=== PATIENT | male | born 1965 | race Caucasian/White ===

== ENCOUNTER 2024-01-20 15:54 | Outpatient (AMB) | payer OTHER, SELFPAY ==
[2024-01-20 16:00] VITALS: BP 120/72; PULSE 70; O2SAT 96; BMI 41.6
--- NOTE | 2024-01-20 16:00 | A.OFFPC_ITS ---
Vital Signs 01/20/24 16:00 Height 5 ft 10 in Weight 290 lb BMI 41.6 BP 120/72 Blood Pressure Location Lt brachial Position Sitting Pulse 70 Pulse Source Pulse Oximeter Pulse Oximetry (%) 96 Oxygen Delivery Method Room Air Intake Visit Reasons: [facility] care[facility] discharge Intake Note: Patient is here as a new patient, [facility] discharge, and patient states he is still in pain, though. Allergies No Known Allergies Allergy (Verified 01/20/24 16:05) Tobacco use date assessed: 01/20/24 Dental Screening Dental Screen Date: 01/20/24 Did you have a dental visit in the last 12 months?: Yes Did you have a dental problem in the last 6 months where you did not have access to dental care?: No Was dental information given to patient?: Patient has dentist HPI [facility] HPI Details New patient Prior PCP:? Dr King Last office visit/CPE: > 1 yr Acute issue(s): Shingles at?right?forehead PMHx: Shingles.Kidney stones, SurgHx: I&D L leg, FHx: GM: HLD SocHx: Nonsmoker. EtOH None. No drugs PFSH Medical History (Updated 01/20/24 @ 17:02 by Den Simmons) Kidney stones Cellulitis of left leg Shingles Family History (Updated 01/20/24 @ 16:12 by Emma Mcmahan [facility]) Maternal Grandmother High cholesterol Sister Substance abuse Social History (Updated 01/20/24 @ 16:15 by Emma Mcmahan WAREHOUSE RECEIVING SUPERVISOR) Household Members: Spouse Both parents involved: No Caregiver staying overnight: No Housing: House Are you a primary manager of care to a significant other at home: No Do you presently have visiting nurse or other home services: No Alcohol intake: never Patient Tobacco Use Status: Never used Tobacco e-Cigarette/Vaping Use: Never Used Use of substances other than those prescribed or required for medical reasons: No Have you been hit, kicked, punched, or otherwise hurt by someone within the past year? If so, by whom?: No Do you feel safe in your current relationship?: Yes Is there a partner from a previous relationship who is making you feel unsafe now?: No Are you made to feel afraid or neglected: No Special janis needs: No Advance Directives: No Healthcare Proxy: No service: Yes Current occupational status: employed Current occupation: Builder, self employed Cognitive needs: No Hearing needs: No Vision needs: No Questionnaire PHQ-9 Over the last 2 weeks, how often have you been bothered by any of the following problems? 1. Little interest or pleasure in doing things: not at all 2. Feeling down, depressed, or hopeless: not at all 3. Trouble falling or staying asleep, or sleeping too much: not at all 4. Feeling tired or having little energy: not at all 5. Poor appetite or overeating: not at all 6. Feeling bad about yourself - or that you are a failure or have let yourself or your family down: not at all 7. Trouble concentrating on things, such as reading the newspaper or watching television: not at all 8. Moving or speaking so slowly that other people could have noticed. Or the opposite - being so fidgety or restless that you have been moving around a lot more than usual: not at all 9. Thoughts that you would be better off or of hurting yourself in some w ay: not at all Total score: 0 Depression Screening Interpretation: Negative Depression Screening Done: Yes Source: Developed by Drs. Roger Dc, Anne Fink, Juan Ramires and colleagues, with an educational iliana from [employer]. Thrive Questionnaire Date Thrive assessed: 01/20/24 I am a: Patient What is your living situation today?: I have a steady place to live Within the past 12 months, did the food you bought not last and you didn't have the money to get more?: Never true Within the past 12 months, did you worry whether your food would run out before you got money to buy more?: Never true Do you have trouble paying for medicines?: Yes Do you have trouble getting transportation to medical appointments?: No Do you have trouble paying your heating and electricity bill?: No Do you have trouble taking care of your child, family member or friend?: No Do you have trouble with day-to-day activities such as bathing, preparing meals, shopping, managing finances, etc.?: No Are you currently unemployed and looking for a job?: No Are you interested in more education?: No THRIVE Score: 0 AUDIT C Alcohol Use Questionnaire (AUDIT-C) 1. How often do you have a drink containing alcohol?: Never 3. How often do you have six or more drinks on one occasion?: Never Total Score: 0 JOSHUA-7 AMB Questionnaire JOSHUA-7 Date JOSHUA - 7 assessed: 01/20/24 Feeling nervous, anxious, or on edge: 0 = Not at all Not being able to stop or control worryin = Not at all Worrying too much about different things: 0 = Not at all Trouble relaxin = Not at all Being so restless that it is hard to sit still: 0 = Not at all Becoming easily annoyed or irritable: 0 = Not at all Feeling afraid as if something awful might happen: 0 = Not at all Total JOSHUA-7 score (0-4 normal; 5-9 mild; 10-14 moderate; 15-21 severe): 0 Source: Developed by Drs. Roger Dc, Anne Fink, Juan Ramires and colleagues, with an educational iliana from [employer]. Review of Systems Const Denies chills, Denies fatigue, Denies fever(s), Denies headache(s) and Denies weakness ENT Denies dizziness and Denies headache(s) Card Denies chest pain, Denies lightheadedness, Denies dyspnea and Denies other (Palpitations) Resp Denies cough, Denies dyspnea, Denies wheezing and Denies other ( shortness of breath) Musc Denies numbness and Denies tingling Neuro Denies dizziness, Denies headache(s), Denies numbness, Denies tingling, Denies paresthesias and Denies weakness Psych Denies anxiety and Denies depression Endo Denies fatigue Aller/Immun Denies wheezing Physical exam (Primary Care) Vital Signs: Last Vital Signs Pulse 70 01/20/24 16:00 BP 120/72 01/20/24 16:00 Pulse Ox 96 01/20/24 16:00 Oxygen Delivery Method Room Air 01/20/24 16:00 BMI result Body Mass Index 41.6 Tobacco/Smoking Status: Tobacco use Status Tobacco use date assessed 01/20/24 01/20/24 16:12 Patient Tobacco Use Status Never used Tobacco 01/20/24 16:15 e-Cigarette/Vaping Use Never Used 01/20/24 16:12 PHQ-9: PHQ-9 Score PHQ-9: Total score 0 01/20/24 17:24 Depression Screening Interpretation: Negative Thrive Assessment: Date of Thrive Assessment Date Thrive assessed 01/20/24 01/20/24 16:19 Const General: no acute distress and well developed Nutritional Appearance: well nourished Orientation/consciousness: patient oriented x3 HENMT Other: Scabbed over rash at R forehead and scalp Dependent swelling/erythema of R lower eyelid/upper cheek Mild tenderness of the cheek Head: Yes normocephalic and Yes atraumatic Eyes General: appearance normal, both eyes and all related structures Pupils: Equal, round and reactive pupils present EOM: EOMs intact bilaterally Chest Chest palpation & inspection: no localized rib tenderness Resp Effort & Inspection: normal respiratory effort Auscultation: clear to auscultation bilaterally Cardio Rate: regular rate Rhythm: regular rhythm Heart sounds: S1 normal heart sound present, S2 normal heart sound present, no gallops, no murmurs and no rubs Skin Other: Rash at R forehead and scalp in dermatome distribution Neuro General: patient oriented x3 and gait normal Cranial nerves: Yes Equal, round and reactive pupils present Psych Affect: normal affect Immunizations Boostrix Tdap 2.5 Lf unit-8 mcg-5 Lf/0.5 mL intramuscular syringe Performing Provider: Ascencion Silva MD Performing Location: [facility] Administered by: Emma Mcmahan CMA on 01/20/24 17:24 Dose Route Admin Location Dispensed Lot Number Expiration Date NDC Oral And Maxillofacial Surgeon 0.5 mL IM Left Deltoid 0.5 mL [id number] 10/05/25 [id number] [place] VIS Given Date VIS Provided VIS Publication Date 01/20/24 Single Vaccine 21 Eligibility Eligibility Date Funding Source Not [facility] Eligible 01/20/24 Private Assessment and Plan Assessment & Plan (1) Shingles: Code(s): B02.9 - Zoster without complications Plan: Shingles?at?right?forehead?and?scalp?which?has?scabbed?ov er?it?and?he?is?finishing?10?day?course?of?valacyclovir. Had?taken?oxycodone?for?pain?but?he?said?this?made?him?sick. Will?give?him?a?script?for?gabapentin Had?seen?vending machine collector?and?no?ocular?involvement. Cheek?swelling?is?improving?and?only?mild?tenderness?consistent?with?swelling?ra ther?than?cellulitis.??Advised?him?to?let?me?know?if?swelling?is?worsening?or?th ere?is?any?pain?or?drainage Si gnificant?breaks?in?skin?at?forehead?and?patient?has?not?had?a?tetanus?shot?in?1 0?years.??Will?give?him?a?tetanus?shot?today (2) Immunization counseling: Code(s): Z71.85 - Encounter for immunization safety counseling Plan: As?above,?patient?is?due?for?tetanus?shot?and?has?significant?break s?in?his?skin?due?to?scabbed?over?shingles?infection Will?give?him?a?tetanus?shot?today. Also?advise?that?he?should?contact?his?pharmacy?to?start?Shingrix?vaccinations (3) Laboratory exam ordered as part of routine general medical examination: Code(s): Z00.00 - Encounter for general adult medical examination without abnormal findings Plan: Check?labs Orders: Orders Comprehensive [place]. Panel Fast 01/20/24 Z00.00 - Encounter for general adult medical examination without abnormal findings Microalbumin, Random (w Creat) 01/20/24 I10 - Essential (primary) hypertension TSH reflex Free T4 01/20/24 Z00.00 - Encounter for general adult medical examination without abnormal findings UA and rflx microscopic 01/20/24 Z00.00 - Encounter for general adult medical examination without abnormal findings Complete Blood Count Auto Diff 01/20/24 Z00.00 - Encounter for general adult medical examination without abnormal findings Lipid Panel 01/20/24 Z00.00 - Encounter for general adult medical examination without abnormal findings Prostate Specific Antigen Scr 01/20/24 Z12.5 - Encounter for screening for malignant neoplasm of prostate Vitamin B12 and Folate 01/20/24 E53.8 - Deficiency of other specified B group vitamins TDaP Immunization 01/20/24 Z23 - Encounter for immunization Medications: New gabapentin 300 mg PO BID 30 days 60 caps 2RF Coding Level of Care Code New Pt Level 3 (99075) Diagnoses Shingles B02.9 Immunization counseling Z71.85 Laboratory exam ordered as part of routine general medical examination Z00.00
== END 2024-01-20 17:00 ==
PROVIDERS: PCP Family Medicine; Visit Provider Family Medicine
DX: Z23 Encounter for immunization (principal)
CPT/HCPCS: 90471; 90715; 99203

== ENCOUNTER 2024-02-01 08:52 | Outpatient (AMB) | payer OTHER, SELFPAY ==
[2024-02-01 08:55] VITALS: BP 118/70; PULSE 72; O2SAT 96; BMI 42.2
--- NOTE | 2024-02-01 08:55 | MHC.PC.OV ---
Vital Signs 02/01/24 08:55 Height 5 ft 10 in Weight 294 lb BMI 42.2 BP 118/70 Blood Pressure Location Lt brachial Position Sitting Pulse 72 Pulse Source Pulse Oximeter Pulse Oximetry (%) 96 Oxygen Delivery Method Room Air Intake Visit Reasons: [facility] [place] Intake Note: Patient is here for follow up on shingles ED visit. He states he is still in pain, he gets attack of pains, they started after he visited his antiviral. Allergies No Known Allergies Allergy (Verified 02/01/24 08:59) Tobacco use date assessed: 02/01/24 Dental Screening Dental Screen Date: 02/01/24 HPI [facility] [place] HPI Details 58 y/o male presents to f/u [facility] [place] for [place]ingles. Was given 1000mg of veltrex in ED - CT of orbits completed and no postseptal involvement. Bookmaker'S Clerk recommended 1000mg of valrex 3 times daily, zirgan 5x per day, erythromycin 4 times daily. Pt notes he no longer has valcyclovir and has only been using gabapentin. Pt states it has been about 24 hours since last symptoms. He does not have an appt. with a neurologist. [facility] Medical History Kidney stones Cellulitis of left leg Shingles Family History Maternal Grandmother High cholesterol Sister Substance abuse Social History Household Members: Spouse Both parents involved: No Caregiver staying overnight: No Housing: House Are you a primary healthcare network consultant to a significant other at home: No Do you presently have visiting nurse or other home services: No Alcohol intake: never Patient Tobacco Use Status: Never used Tobacco e-Cigarette/Vaping Use: Never Used Special janis needs: No service: Yes Current occupational status: employed Current occupation: Builder, self employed Cognitive needs: No Hearing needs: No Vision needs: No Questionnaire Thrive Questionnaire Date Thrive assessed: 01/20/24 JOSHUA-7 AMB Questionnaire JOSHUA-7 Date JOSHUA - 7 assessed: 01/20/24 Source: Developed by Drs. Roger Dc, Anne B.W. Juan Fink and colleagues, with an educational iliana from [employer]. Review of Systems Const Denies chills, Denies fatigue, Denies fever(s), Denies headache(s) and Denies weakness ENT Denies dizziness and Denies headache(s) Card Denies dyspnea Resp Denies cough, Denies dyspnea, Denies wheezing and Denies other (shortness of breath) Musc Denies numbness and Denies tingling Neuro Denies dizziness, Denies headache(s), Denies numbness, Denies tingling and Denies weakness Psych Denies anxiety and Denies depression Endo Denies fatigue Aller/Immun Denies wheezing Physical exam (Primary Care) Vital Signs: Last Vital Signs Pulse 72 02/01/24 08:55 BP 118/70 02/01/24 08:55 Pulse Ox 96 02/01/24 08:55 Oxygen Delivery Method Room Air 02/01/24 08:55 BMI result Body Mass Index 42.2 Tobacco/Smoking Status: Tobacco use Status Tobacco use date assessed 02/01/24 02/01/24 09:03 Patient Tobacco Use Status Never used Tobacco 02/01/24 09:03 e-Cigarette/Vaping Use Never Used 02/01/24 09:03 Thrive Assessment: Date of Thrive Assessment Date Thrive assessed 01/20/24 02/01/24 09:03 Const General: well developed; No acute distress Nutritional Appearance: well nourished Orientation/consciousness: patient oriented x3 HENMT Head: Yes normocephalic and Yes atraumatic Eyes General: appearance normal, both eyes and all related structures Pupils: Equal, round and reactive pupils present EOM: EOMs intact bilaterally Resp Effort & Inspection: normal respiratory effort Neuro General: patient oriented x3 and gait normal Cranial nerves: Yes Equal, round and reactive pupils present Psych Affect: normal affect Assessment and Plan Assessment & Plan (1) Shingles: Code(s): B02.9 - Zoster without complications Plan: Shingles?at?right?forehead?and?scalp?and?ongoing?severe?pain?and?neuralgia?at?this?site.??Still?has?some?breaks?in?the?skin He?has?increased?his?gabapentin?and?I?have?changed?his?script?to?accommodate?this?for?now Will?also?continue?his valacyclovir?as?symptoms?worsened?again?when?he?discontinued it He?can?also?try?some?lidocaine?gel/ointment - avoid?eye?area Referred?to?neurology (2) Post herpetic neuralgia: Code(s): B02.29 - Other postherpetic nervous system involvement Plan: As?above,?referred?to?neurology Orders: Referrals Neurology Referral B02.29 - Other postherpetic nervous system involvement, B02.9 - Zoster without complications Medications: New lidocaine 5% 1 appl topical BID PRN 45 grams 0RF pain 10 days B02.29 - Other postherpetic nervous system involvement, B02.9 - Zoster without complications Changed From gabapentin 300 mg PO BID 30 days 60 caps 2RF B02.29 - Other postherpetic nervous system involvement, B02.9 - Zoster without complications To gabapentin 600 mg (2 x 300 mg) PO Q6-8H 30 days 240 caps 2RF B02.29 - Other postherpetic nervous system involvement, B02.9 - Zoster without complications From valacyclovir 1,000 mg PO TID To valacyclovir 1,000 mg PO TID 7 days 21 tabs 0RF Coding Level of Care Code Est Pt Level 3 (44700) Diagnoses Shingles B02.9 Post herpetic neuralgia B02.29
== END 2024-02-01 09:36 | disposition home or self-care (01) ==
PROVIDERS: PCP Family Medicine; Visit Provider Family Medicine
DX: B02.9 Zoster without complications (principal); B02.29 Other postherpetic nervous system involvement
CPT/HCPCS: 99213

== ENCOUNTER 2024-02-15 13:22 | Outpatient (AMB) | payer OTHER, SELFPAY ==
--- NOTE | 2024-02-15 13:26 | A.OFFPC_ITS ---
Vital Signs 02/15/24 13:30 Height 5 ft 10 in Weight 294 lb BMI 42.2 BP 130/80 Blood Pressure Location Lt brachial Position Sitting Respiration 13 Pulse 88 Pulse Source Pulse Oximeter Pulse Oximetry (%) 98 Oxygen Delivery Method Room Air Intake Visit Reasons: 2 week follow up Intake Note: Patient is having a two week follow up regarding shingles. Patient reports he has been trying to fix the Gabapentin RX confusion. Patient reports due to the amount of pain he was in, prior to seeing Dr. Silva 2 weeks ago, he called the web production designer provider and was told to increase his Gabapentin to 600mg Q4-6H. Patient informed provider of this and provider noted in his last OVN he would increase this medication. This confusion looks like a clerical error with transition of medication from EMR system to pharmacy. Patient requests a new RX to reflect Gabapentin 300mg capsules sig: Take 2 capsules Q4-6H QTY: 360. Patient reports he was having trouble with obtaining an appointment through [facility] neurology. He went through his insurance [employer] and found a new neurologist in [place], [place]. Patient requests an urgent referral. Online Journalist Required: No Accompanied by: Spouse Allergies No Known Allergies Allergy (Verified 02/15/24 13:35) Tobacco use date assessed: 02/01/24 Dental Screening Dental Screen Date: 02/01/24 HPI 2 week follow up HPI Details 58 y/o male presents to f/u shingles/pos t herpetic neuralgia. He reports ongoing pain but does note severity of pain have improved, though he reports pain in the 7-8 scale. He notes he does not think lidocaine has been working well and makes it hard to sleep. Gabapentin has been helping. [facility] Medical History Kidney stones Cellulitis of left leg Shingles Family History Maternal Grandmother High cholesterol Sister Substance abuse Social History Household Members: Spouse Both parents involved: No Caregiver staying overnight: No Housing: House Are you a primary career placement specialist to a significant other at home: No Do you presently have visiting nurse or other home services: No Alcohol intake: never Patient Tobacco Use Status: Never used Tobacco e-Cigarette/Vaping Use: Never Used Special janis needs: No service: Yes Current occupational status: employed Current occupation: Builder, self employed Cognitive needs: No Hearing needs: No Vision needs: No Questionnaire Thrive Questionnaire Date Thrive assessed: 01/20/24 JOSHUA-7 AMB Questionnaire JOSHUA-7 Date JOSHUA - 7 assessed: 01/20/24 Source: Developed by Drs. Roger Dc, Anne Fink, Juan Ramires and colleagues, with an educational iliana from [employer]. Review of Systems Const Denies chills, Denies fatigue, Denies fever(s), Denies headache(s) and Denies we akness ENT Denies dizziness and Denies headache(s) Card Denies dyspnea Resp Denies cough, Denies dyspnea, Denies wheezing and Denies other (shortness of breath) Musc Denies numbness and Denies tingling Neuro Denies dizziness, Denies headache(s), Denies numbness, Denies tingling and Denies weakness Psych Denies anxiety and Denies depression Endo Denies fatigue Aller/Immun Denies wheezing Physical exam (Primary Care) Vital Signs: Last Vital Signs Pulse 88 02/15/24 13:30 Resp 13 02/15/24 13:30 BP 130/80 02/15/24 13:30 Pulse Ox 98 02/15/24 13:30 Oxygen Delivery Method Room Air 02/15/24 13:30 BMI result Body Mass Index 42.2 Tobacco/Smoking Status: Tobacco use Status Tobacco use date assessed 02/01/24 02/15/24 13:27 Patient Tobacco Use Status Never used Tobacco 02/15/24 13:27 e-Cigarette/Vaping Use Never Used 02/15/24 13:27 Thrive Assessment: Date of Thrive Assessment Date Thrive assessed 01/20/24 02/15/24 13:27 Const General: well developed; No acute distress Nutritional Appearance: well nourished Orientation/consciousness: patient oriented x3 HENMT Head: Yes normocephalic and Yes atraumatic Eyes General: appearance normal, both eyes and all related structures Pupils: Equal, round and reactive pupils present EOM: EOMs intact bilaterally Resp Effort & Inspection: normal respiratory effort Neuro General: patient oriented x3 and gait normal Cranial nerves: Yes Equal, round and reactive pupils present Psych Affect: normal affect Assessment and Plan Assessment & Plan (1) Post herpetic neuralgia: Code(s): B02.29 - Other postherpetic nervous system involvement Plan: Patient?is?still?having?attacks?of?neuralgic?pain?up?to?pain?scale?of?8/10?thoug h?he?says?it?use?to?be?much?higher?(11)?and?more?frequent. Gabapentin?helps?though?he?has?to?take?a?rather?high?dose Lidocaine?isn't?helping?much.??He?is?done?with?valacyclovir. Continue?gabapentin?and?trial?amitriptyline. Will?also?give?him?a?small?amount?of?Percocet?that?he?can?use?f or?severe?pain.??Use?sparingly.??Risks/benefits?were?discussed?with?patient?incl uding?dependency/addiction. Referred?him?to?lay?he?clinic?Neurology?at?patient?request?because?they?could?gi ve?him?a?so marifer?appointment?than?local?neurology.??Patient?already?has?an?appointment. (2) Shingles: Code(s): B02.9 - Zoster without complications Plan: As?above Had?advised?he?get?Shingrix?vaccine?when?symptoms?improve. Remind?him?again?at?next?visit Orders: Referrals Neurology Referral B02.29 - Other postherpetic nervous system involvement, B02.9 - Zoster without complications Medications: New oxycodone-acetaminophen 5-325 mg (Percocet) [employer] Verified. Partial Fill upon patient request. 1 tab PO DAILY PRN 12 tabs 0RF breakthrough pain 30 days amitriptyline 100 mg (2 x 50 mg) PO DAILY 60 tabs 2RF 30 days Changed From gabapentin 600 mg (2 x 300 mg) PO Q6-8H 30 days 240 caps 2RF B02.29 - Other postherpetic nervous system involvement, B02.9 - Zoster without complications To gabapentin 600 mg (2 x 300 mg) PO Q4-6H PRN 360 caps 2RF pain 30 days B02.29 - Other postherpetic nervous system involvement, B02.9 - Zoster without complications Coding Level of Care Code Est Pt Level 3 (16891) Diagnoses Post herpetic neuralgia B02.29 Shingles B02.9
[2024-02-15 13:30] VITALS: BP 130/80; PULSE 88; RESP 13; O2SAT 98; BMI 42.2
== END 2024-02-15 14:38 | disposition home or self-care (01) ==
PROVIDERS: PCP Family Medicine; Visit Provider Family Medicine
DX: B02.29 Other postherpetic nervous system involvement (principal); B02.9 Zoster without complications
CPT/HCPCS: 99213

== ENCOUNTER 2024-03-05 15:36 | Outpatient (AMB) | payer OTHER, SELFPAY ==
--- NOTE | 2024-03-05 09:42 | A.OFFPC_ITS ---
Vital Signs 03/05/24 15:38 Height 5 ft 10 in Weight 293 lb 6 oz BMI 42.1 BP 123/60 Blood Pressure Location Rt brachial Position Sitting Pulse 83 Pulse Source Pulse Oximeter Pulse Oximetry (%) 95 Oxygen Delivery Method Room Air Intake Visit Reasons: f/u shingles/neuralgia Intake Note: Patient is here to follow up on shingles, neuralgia. Patient states he saw neurologist Jamar at [facility] in [place]. Allergies No Known Allergies Allergy (Verified 03/05/24 15:43) Tobacco use date assessed: 03/05/24 Dental Screening Dental Screen Date: 02/01/24 HPI f/u shingles/neuralgia HPI Details 58 y/o male presents to f/u post herpeti c neuralgia. Trialing amitriptyline and had given him a small amount of Percocet to use spari ngly. Had made a new referral to [facility]. Had seen neurology - he notes he had been unable to tolerate amitriptyline so neurologist had switched this to noritriptyline. Pt reports neuralgia has improved but still reports attacks. [facility] Medical History Kidney stones Cellulitis of left leg Shingles Family History Maternal Grandmother High cholesterol Sister Substance abuse Social History Household Members: Spouse Both parents involved: No Caregiver staying overnight: No Housing: House Are you a primary administrator health care facility to a significant other at home: No Do you presently have visiting nurse or other home services: No Alcohol intake: never Patient Tobacco Use Status: Never used Tobacco e-Cigarette/Vaping Use: Never Used Special janis needs: No service: Yes Current occupational status: employed Current occupation: Builder, self employed Cognitive needs: No Hearing needs: No Vision needs: No Questionnaire Thrive Questionnaire Date Thrive assessed: 01/20/24 JOSHUA-7 AMB Questionnaire JOSHUA-7 Date JOSHUA - 7 assessed: 01/20/24 Source: Developed by Drs. Roger Dc, Anne Fink, Juan Ramires and colleagues, with an educational iliana from [employer]. Review of Systems Const Denies chills, Denies fatigue, Denies fever(s), Denies headache(s) and Denies weakness ENT Denies dizziness and Denies headache(s) Card Denies dyspnea Resp Denies cough, Denies dyspnea, Denies wheezing and Denies other (shortness of breath) Musc Denies numbness and Denies tingling Neuro Denies dizziness, Denies headache(s), Denies numbness, Denies tingling and Denies weakness Psych Denies anxiety and Denies depression Endo Denies fatigue Aller/Immun Denies wheezing Physical exam (Primary Care) Vital Signs: Last Vital Signs Pulse 83 03/05/24 15:38 BP 123/60 03/05/24 15:38 Pulse Ox 95 03/05/24 15:38 Oxygen Delivery Method Room Air 03/05/24 15:38 BMI result Body Mass Index 42.1 Tobacco/Smoking Status: Tobacco use Status Tobacco use date assessed 03/05/24 03/05/24 15:50 Patient Tobacco Use Status Never used Tobacco 03/05/24 09:42 e-Cigarette/Vaping Use Never Used 03/05/24 09:42 Thrive Assessment: Date of Thrive Assessment Date Thrive assessed 01/20/24 03/05/24 09:42 Const General: well developed; No acute distress Nutritional Appearance: well nourished Orientation/consciousness: [facility] Head: Yes normocephalic and Yes atraumatic Eyes General: appearance normal, both eyes and all related structures Pupils: Equal, round and reactive pupils present EOM: EOMs intact bilaterally Resp Effort & Inspection: normal respiratory effort Auscultation: clear to auscultation bilaterally Cardio Rate: regular rate Rhythm: regular rhythm Heart sounds: S1 normal heart sound present, S2 normal heart sound present, no gallops, no murmurs and no rubs Neuro General: patient oriented x3 and gait normal Cranial nerves: Yes Equal, round and reactive pupils present Psych Affect: normal affect Assessment and Plan Assessment & Plan (1) Post herpetic neuralgia: Code(s): B02.29 - Other postherpetic nervous system involvement Plan: Pain?has?been?improving. He?saw?his?neurologist?who?changed?amitriptyline?to?nortriptyline?due?to?severe? sleepiness?with?amitriptyline. He?thinks?this?is?helping?somewhat?but?not?sure?yet?- he?has?only?been?taki ng?it?for?a?couple?of?days. Gabapentin?has?been?helping?and?this?was?in?frequency?of?doses?but?his?overall?d osing?for?24?hours?remains?the?same Lidocaine?helps?so?I?have?refilled?this. He?has?Percocet ?available?for?any?severe?pain.??Recommended?he?use?this?sparingly?and?when?it?i s?done?he?should?need?any He?has?an?appointment?to?follow-up?with?his?neurologist.??more. Also?check?with?patient?abou t?whether?or?not?he?has?gotten?a?Shingrix?vaccine?yet.??He?said?his?neurologist? wants?to?hold?off?until?he?has?improved?further.??He?can?double?check?with?him?a t?his?follow-up?appointment. (2) Immunization counseling: Code(s): Z71.85 - Encounter for immunization safety counseling Plan: As?above,?follow-up?with?neurologist?regarding?Shingrix?vaccine. Orders: Orders Hemoglobin A1c Today R73.01 - Impaired fasting glucose Medications: Refilled lidocaine 5% 1 appl topical BID 10 days PRN 45 grams 0RF pain B02.29 - Other postherpetic nervous system involvement, B02.9 - Zoster without complications Discontinued amitriptyline Discontinued Reason: Doctor's Order 100 mg (2 x 50 mg) PO DAILY 30 days 60 tabs 2RF Coding Level of Care Code Est Pt Level 3 (56870) Diagnoses Post herpetic neuralgia B02.29 Immunization counseling Z71.85
[2024-03-05 15:38] VITALS: BP 123/60; PULSE 83; O2SAT 95; BMI 42.1
== END 2024-03-09 13:28 | disposition home or self-care (01) ==
PROVIDERS: PCP Family Medicine; Visit Provider Family Medicine
DX: B02.29 Other postherpetic nervous system involvement (principal); Z71.85 Encounter for immunization safety counseling
CPT/HCPCS: 99213

== ENCOUNTER 2024-12-05 15:03 | Outpatient (REF) | payer OTHER, SELFPAY ==
[2024-12-05 18:21] LABS: MANUAL DIFF FLAG NO
[2024-12-05 18:36] LABS: Basophils Percent Auto 0.3 % (0-2); Eosinophils Absolute Auto 0.1 X10*3/uL (0.0-0.4); Eosinophils Percent Auto 1.8 % (0-4); Hematocrit 45.6 % (42.0-52.0); Hemoglobin 15.9 g/dl (14.0-18.0); Imm Gran Abs Auto 0.01 X10*3/uL (0.00-0.03); Imm Gran Pct Auto 0.2 % (0.0-0.4); Lymphocytes Absolute Auto 1.7 X10*3/uL (1.2-4.9); Lymphocytes Percent Auto 26.6 % (20-40); Mean Corpuscular HGB Conc 34.9 g/dl (31.0-36.0); Mean Corpuscular Hemoglobin 30.6 pg (27.0-33.0); Mean Corpuscular Volume 87.7 fL (80.0-98.0); Mean Platelet Volume 10.6 fL (9.4-12.4); Monocytes Absolute Auto 0.5 X10*3/uL (0.1-1.2); Monocytes Percent Auto 7.8 % (2-11); Neutrophils Percent Auto 63.3 % (45-73); Platelet Count 172 X10*3/uL (160-400); Red Cell Distribution Width 12.5 % (11.0-16.0); White Blood Count 6.3 X10*3/uL (4.8-10.8)
[2024-12-05 18:43] LABS: Estimated Average Glucose 117 mg/dL; Hemoglobin A1C 163.4576 umol/L; Hemoglobin A1c % 5.7 % (<6.0); Total Hemoglobin (HGBA1C) 4166.6968 umol/L
[2024-12-05 18:58] LABS: Alanine Aminotransferase 30 U/L (0-40); Albumin Level 4.5 g/dL (3.5-5.0); Alkaline Phosphatase 48 U/L (39-117); Anion Gap 11 (12-20); Aspartate Amino Transferase 27 U/L (5-37); Bilirubin Total 1.1 mg/dL (0.0-1.0); Blood Urea Nitrogen 19 mg/dL (9-16); Calcium 9.1 mg/dL (8.4-10.2); Carbon Dioxide 27 mmol/L (22-29); Chloride 103 mmol/L (96-108); Cholesterol 168 mg/dL (<200); Estimated Glomerular Filt Rate > 60; Glucose Fasting 92 mg/dL (60-99); HDL Cholesterol 42 mg/dL (>40); LDL Cholesterol Calculated 108 mg/dL (<100); Potassium 4.1 mmol/L (3.3-5.1); Sodium 137 mmol/L (135-145); Total Protein 7.5 g/dL (6.5-8.0); Triglycerides 90 mg/dL (<150)
[2024-12-05 18:59] LABS: Microalbum/Creatinine Ratio Ur 6.5 ug/mg cr (<30)
[2024-12-05 19:02] LABS: Appearance Urine Clear; Color Urine Yellow; Glucose Urine UA Negative (Negative); Leukocyte Esterase Urine Trace (Negative); Nitrite Urine Negative (Negative); Specific Gravity - Urine 1.025 (1.005-1.025); UMIC TRIGGER UA YES; Urine Blood Negative (Negative); Urine Ketones 40 mg/dL (Negative); Urine Protein Negative (Neg-Trace)
[2024-12-05 19:14] LABS: TSH reflex Free T4 1.36 uIU/mL (0.32-4.0)
[2024-12-05 19:21] LABS: Folate 9.2 ng/mL (> or = 4.0); Prostate Specific Antigen Scr 4.03 ng/mL (<0.05-4.0); Vitamin B12 836 pg/mL (200-900)
[2024-12-05 19:30] LABS: Bacteria Urine None Seen (None Seen); Hyaline Casts Urine 0-2 /LPF (0-2); RBC Urine 0-2 /HPF (0-2); Squamous Epithelial Cell Urine 0-2 /HPF (0-2); WBC Urine 0-5 /HPF (0-5)
== END 2024-12-05 15:04 | disposition home or self-care (01) ==
LOC: HO.WFDLDS 15:03
PROVIDERS: Visit Provider Family Medicine
DX: Z00.00 Encounter for general adult medical examination without abnormal findings (principal); I10 Essential (primary) hypertension; E53.8 Deficiency of other specified B group vitamins; R73.01 Impaired fasting glucose; Z12.5 Encounter for screening for malignant neoplasm of prostate
CPT/HCPCS: 36415; 80053; 80061; 81001; 81003; 82043; 82570; 82607; 82746; 83036; 84153; 84443; 85025

== ENCOUNTER 2024-12-07 08:54 | Outpatient (AMB) | payer OTHER, SELFPAY ==
--- NOTE | 2024-12-07 08:42 | MHC.PC.OV ---
Intake Visit Reasons: discuss high blood sugar Allergies No Known Allergies Allergy (Verified 03/05/24 15:43) Tobacco use date assessed: 03/05/24 Dental Screening Dental Screen Date: 02/01/24 HPI discuss high blood sugar HPI Details 59 y/o male presents to f/u labs via telemedicine. Labs drawn 12/05/24. Reviewed labs with pt. A1c 5.7%. He notes hx of an A1c in the 9.0% range around last January - he had made changes and lost 40 lbs since then. Triglycerides 90. TC 168. LDL 108. HDL 42. PSA 4.03. He reports difficulty sleeping, He feels he needs to sleep on a recliner, and notes he wakes up frequently when he sleeps on his bed. HPI Comments History of Present Illness Details Documentation assistance for Ascencion Silva MD, was provided by Den Simmons, Monorail Hooker on 12/07/2024 at 9:07 AM EST. I, Dr. Silva, have read, observed, and verified documentation. [facility] Medical History Kidney stones Cellulitis of left leg Shingles Family History Maternal Grandmother High cholesterol Sister Substance abuse Social History Household Members: Spouse Both parents involved: No Caregiver staying overnight: No Housing: House Are you a primary youth care professional to a significant other at home: No Do you presently have visiting nurse or other home services: No Alcohol intake: never Patient Tobacco Use Status: Never used Tobacco e-Cigarette/Vaping Use: Never Used Special janis needs: No service: Yes Current occupational status: employed Current occupation: Builder, self employed Cognitive needs: No Hearing needs: No Vision needs: No Questionnaire Thrive Questionnaire Date Thrive assessed: 01/20/24 I am a: Patient What is your living situation today?: I have a steady place to live Within the past 12 months, did the food you bought not last and you didn't have the money to get more?: I choose not to answer this question Within the past 12 months, did you worry whether your food would run out before you got money to buy more?: I choose not to answer this question Do you have trouble paying for medicines?: I choose not to answer this question Do you have trouble getting transportation to medical appointments?: I choose not to answer this question Do you have trouble paying your heating and electricity bill?: I choose not to answer this question Do you have trouble taking care of your child, family member or friend?: I choose not to answer this question Do you have trouble with day-to-day activities such as bathing, preparing meals, shopping, managing finances, etc.?: I choose not to answer this question Are you currently unemployed and looking for a job?: I choose not to answer this question Are you interested in more education?: I choose not to answer this question THRIVE Score: 0 AUDIT C Alcohol Use Questionnaire (AUDIT-C) 1. How often do you have a drink containing alcohol?: Never 2. How many drinks containing alcohol do you have on a typical day when you are drinking?: 10 or more Total Score: 4 JOSHUA-7 AMB Questionnaire JOSHUA-7 Date JOSHUA - 7 assessed: 01/20/24 Source: Developed by Drs. Roger Dc, Anne Fink, Juan Ramires and colleagues, with an educational iliana from [employer]. Review of Systems Const Denies chills, Denies fatigue, Denies fever(s), Denies headache(s) and Denies weakness ENT Denies dizziness and Denies headache(s) Card Denies dyspnea Resp Denies cough, Denies dyspnea, Denies wheezing and Denies other (shortness of breath) Musc Denies numbness and Denies tingling Neuro Denies dizziness, Denies headache(s), Denies numbness, Denies tingling and Denies weakness Psych Denies anxiety and Denies depression Endo Denies fatigue Aller/Immun Denies wheezing Physical exam (Primary Care) Tobacco/Smoking Status: Tobacco use Status Tobacco use date assessed 03/05/24 12/07/24 08:48 Patient Tobacco Use Status Never used Tobacco 12/07/24 08:48 e-Cigarette/Vaping Use Never Used 12/07/24 08:48 Thrive Assessment: Date of Thrive Assessment Date Thrive assessed 01/20/24 12/07/24 08:48 Telehealth Telehealth Telehealth Platform: Telephone Location of provider rendering services: practice address Location of patient: address on file Patient Identification confirmed using: Name, : Yes Telehealth method: voice only Patient verbally consented to treatment: Yes Patient verbally consented to billing insurance company: Yes Patient informed of any privacy concerns related to visit: Yes Minutes spent on Phone/Video with Pt.: 24 Coding Level of Care Code Tele Est Pt Level 3 (72244) Diagnoses Diet-controlled diabetes mellitus E11.9 Elevated LDL cholesterol level E78.00 Elevated PSA R97.20 Difficulty sleeping G47.9 Assessment & Plan Assessment & Plan (1) Diet-controlled diabetes mellitus: Code(s): E11.9 - Type 2 diabetes mellitus without complications Category: Medical Plan: Will?send?a?script?for?testing?supplies Work?at?diet?low?in?sugars?and?starches Will?follow (2) Elevated LDL cholesterol level: Code(s): E78.00 - Pure hypercholesterolemia, unspecified Category: Medical Plan: Work?at?a?diet?low?in?saturated?fats?and?cholesterol Encouraged?exercise?and?weight?loss Patient?notes?he?has?been?working?on?weight?loss?lost?considerable?amount?already (3) Elevated PSA: Code(s): R97.20 - Elevated prostate specific antigen [PSA] Category: Medical Plan: Elevated?PSA Recheck?this Patient?already?has?an?appointment?with?a?urologist (4) Difficulty sleeping: Code(s): G47.9 - Sleep disorder, unspecified Category: Medical Plan: Patient?sleeps?in?a?recliner Has?had?gasping/apneic?events?lying?flat?in?a?bed Referred?to?Sleep?Medicine Orders: Orders Prostate Specific Antigen Scr Today R97.20 - Elevated prostate specific antigen [PSA], Z12.5 - Encounter for screening for malignant neoplasm of prostate Basic Metabolic Panel Today R97.20 - Elevated prostate specific antigen [PSA], Z00.00 - Encounter for general adult medical examination without abnormal findings Referrals Sleep Medicine Referral G47.30 - Sleep apnea, unspecified Medications: New blood sugar diagnostic (FreeStyle Lite Strips) DX: E11.9, test blood sugar 4 times a day, 90 days 100 ea 4RF R73.03 - Prediabetes blood-glucose meter (FreeStyle Lite Meter kit) DX: E11.9, test blood sugar once a day, duration 999 days 1 ea 0RF R73.03 - Prediabetes trazodone 50 mg PO BEDTIME 30 days PRN 30 tabs 0RF sleep Discontinued oxycodone-acetaminophen 5-325 mg (Percocet) MassPat Verified. Partial Fill upon patient request. Discontinued Reason: Doctor's Order 1 tab PO DAILY 30 days PRN 12 tabs 0RF breakthrough pain
== END 2024-12-07 17:05 | disposition home or self-care (01) ==
LOC: HO.HMCFM 08:54
PROVIDERS: PCP Family Medicine; Visit Provider Family Medicine
DX: E11.9 Type 2 diabetes mellitus without complications (principal); E78.00 Pure hypercholesterolemia, unspecified; R97.20 Elevated prostate specific antigen [PSA]; G47.9 Sleep disorder, unspecified

== ENCOUNTER 2025-01-02 13:54 | Outpatient (AMB) | payer OTHER, SELFPAY ==
--- NOTE | 2025-01-02 14:01 | A.OFFPC_ITS ---
Vital Signs 01/02/25 14:11 Height 5 ft 10 in Weight 233 lb 2 oz BMI 33.4 BP 116/60 Blood Pressure Location Lt brachial Position Sitting Respiration 14 Pulse 70 Pulse Source Pulse Oximeter Temp 98.8 F Temp Source Oral Pulse Oximetry (%) 93 Oxygen Delivery Method Room Air Intake Visit Reasons: FMLA Paperwork /Med review Intake Note: fmla paperwork and would like to talk about sleep medication he spoke with the environmental technology professor provider ( zina) who told him to double his dose. pt states he did not feel emotionally in control and couldn't get things done like he usually would. Faucets Assembler Required: No Allergies No Known Allergies Allergy (Verified 01/02/25 14:09) Medication List - Last Reconciled 01/02/25 by Ascencion Silva MD blood sugar diagnostic (OneTouch Ultra Test strips) As directed check the blood sugar once a day blood-glucose meter As directed check the blood sugar once a day One touch ULTRA lancets (FreeStyle Lancets) As directed lancets As directed check the blood sugar once a day tamsulosin 0.8 mg PO DAILY trazodone 50 mg PO BEDTIME PRN 30 days Tobacco use date assessed: 03/05/24 Dental Screening Dental Screen Date: 02/01/24 HPI FMLA Paperwork /Med review HPI Details 59 y/o male presents today for [facility] dakota velez. Notes ongoing difficulty sleeping. Had questions about increasing his trazodone dosage. He is on 50mg and has been helping. Higher dose had caused some adverse effects but he had taken this late at night. Labs drawn 12/05/24. Reviewed labs with pt. Triglycerides 90. TC 168. LDL 108. HDL 42 PSA elevated at 4.03. Reports ongoing, worsening anxiety. Hx of panic disorders with symptoms including chest pain. HPI Comments History of Present Illness Details Documentation assistance for Ascencion Silva MD, was provided by Den Simmons,? Wood Getter on 01/02/2025 at 2:34 PM EST. I, Dr. Silva, have read, observed, and verified documentation. ?? [facility] Medical History Kidney stones Cellulitis of left leg Shingles Family History Maternal Grandmother High cholesterol Sister Substance abuse Social History Household Members: Spouse Both parents involved: No Caregiver staying overnight: No Housing: House Are you a primary medicare sales representative to a significant other at home: No Do you presently have visiting nurse or other home services: No Alcohol intake: never Patient Tobacco Use Status: Never used Tobacco e-Cigarette/Vaping Use: Never Used Special janis needs: No service: Yes Current occupational status: employed Current occupation: Builder, self employed Cognitive needs: No Hearing needs: No Vision needs: No Questionnaire PHQ-9 Over the last 2 weeks, how often have you been bothered by any of the following problems? 1. Little interest or pleasure in doing things: several days 2. Feeling down, depressed, or hopeless: several days 3. Trouble falling or staying asleep, or sleeping too much: several days 4. Feeling tired or having little energy: several days 5. Poor appetite or overeating: not at all 6. Feeling bad about yourself - or that you are a failure or have let yourself or your family down: several days 7. Trouble concentrating on things, such as reading the newspaper or watching television: several days 8. Moving or speaking so slowly that other people could have noticed. Or the opposite - being so fidgety or restless that you have been moving around a lot more than usual: several days 9. Thoughts that you would be better off or of hurting yourself in some way: not at all Total score: 7 Source: Developed by Drs. Roger Dc, Anne Fink, Juan Ramires and colleagues, with an educational iliana from [email or web address]. Thrive Questionnaire Date Thrive assessed: 12/03/24 I am a: Patient What is your living situation today?: I have a steady place to live Within the past 12 months, did the food you bought not last and you didn't have the money to get more?: I choose not to answer this question Within the past 12 months, did you worry whether your food would run out before you got money to buy more?: I choose not to answer this question Do you have trouble paying for medicines?: I choose not to answer this question Do you have trouble getting transportation to medical appointments?: I choose not to answer this question Do you have trouble paying your heating and electricity bill?: I choose not to answer this question Do you have trouble taking care of your child, family member or friend?: I choose not to answer this question Do you have trouble with day-to-day activities such as bathing, preparing meals, shopping, managing finances, etc.?: I choose not to answer this question Are you currently unemployed and looking for a job?: I choose not to answer this question Are you interested in more education?: I choose not to answer this question Please select the resources that you would like help with: None Currently or been in a relationship where the following occur: No concerns reported THRIVE Score: 0 JOSHUA-7 AMB Questionnaire JOSHUA-7 Date JOSHUA - 7 assessed: 01/20/24 Source: Developed by Drs. Roger Dc, Anne Fink, Juan Ramires and colleagues, with an educational iliana from [email or web address]. Review of Systems Const Denies chills, Denies fatigue, Denies fever(s), Denies headache(s) and Denies weakness ENT Denies dizziness and Denies headache(s) Card Denies dyspnea Resp Denies cough, Denies dyspnea, Denies wheezing and Denies other (shortness of breath) Musc Denies numbness and Denies tingling Neuro Denies dizziness, Denies headache(s), Denies numbness, Denies tingling and Denies weakness Psych Reports anxiety Endo Denies fatigue Aller/Immun Denies wheezing Physical exam (Primary Care) Vital Signs: Last Vital Signs Temp 98.8 F 01/02/25 14:11 Pulse 70 01/02/25 14:11 Resp 14 01/02/25 14:11 BP 116/60 01/02/25 14:11 Pulse Ox 93 01/02/25 14:11 Oxygen Delivery Method Room Air 01/02/25 14:11 BMI result Body Mass Index 33.4 Tobacco/Smoking Status: Tobacco use Status Tobacco use date assessed 03/05/24 01/02/25 14:03 Patient Tobacco Use Status Never used Tobacco 01/02/25 14:03 e-Cigarette/Vaping Use Never Used 01/02/25 14:03 PHQ-9: PHQ-9 Score PHQ-9: Total score 7 01/02/25 14:03 Thrive Assessment: Date of Thrive Assessment Date Thrive assessed 12/03/24 01/02/25 14:03 Currently or been in a relationship where the following occur: No concerns reported Const General: well developed; No acute distress Nutritional Appearance: well nourished Orientation/consciousness: patient oriented x3 [facility] Head: Yes normocephalic and Yes atraumatic Eyes General: appearance normal, both eyes and all related structures Pupils: Equal, round and reactive pupils present EOM: EOMs intact bilaterally Resp Effort & Inspection: normal respiratory effort Neuro General: patient oriented x3 and gait normal Cranial nerves: Yes Equal, round and reactive pupils present Psych Affect: normal affect Coding Level of Care Code Est Pt Level 4 (76467) Diagnoses Difficulty sleeping G47.9 Anxiety F41.9 Chest discomfort R07.89 Elevated LDL cholesterol level E78.00 Elevated PSA R97.20 Assessment & Plan Assessment & Plan (1) Difficulty sleeping: Code(s): G47.9 - Sleep disorder, unspecified Category: Medical Plan: Patient?has?been?taking?trazodone?for?difficulty?sleeping?and?anxiety.??This?has ?been?helping. Higher?dose caused?some?adverse?effects?the?nex t?morning?however?he?had?taken?this?medication?rather?late?at?night Take?around?9?or?930?at?night and?can?use?50?or?100?mg?as?tolerated. (2) Anxiety: Code(s): F41.9 - Anxiety disorder, unspecified Category: Medical Plan: Ongoing?and?worsening?anx iety?and?patient?notes?he?has?a?history?some?prior?anxiety?and?panic?disorder. Symptoms?include?chest?pain Patient?was?recently?seen?at?the?emergency?department?and?ruled?out?for?ACS Will?have?him?start?citalopram?at?10?mg?daily?and?titrate?up?to?20?mg?daily. Risks/benefits?of?medication?including?serotonin?syndrome?more?discussed?with?krystle corbett. Patient?will?also?benefit?from?a?therapist - will?refer Patient?is?having?too?much?anxiety?to?drive?and?has?difficulty?outside - concern?for?early/mild?agoraphobia Requires?his??to?go?with?him?to?office?visits?at?present. Will?fill?out?FMLA?paperwork (3) Chest discomfort: Code(s): R07.89 - Other chest pain Category: Medical Plan: As?above,?patient?ruled?out?for?ACS?at?recent?ED?visit. He?does?have?a?strong?family?history?of?coronary?artery?disease?and?heart?attack s. He?has?already?been?referred?to?Cardiology?at?his?request. (4) Elevated LDL cholesterol level: Code(s): E78.00 - Pure hypercholesterolemia, unspecified Category: Medical Plan: Mildly?elevated?LDL?cholesterol.??Advised?diet?low?in?saturated?fats?and?cholest cristian,?weight?loss?and?exercise (5) Elevated PSA: Code(s): R97.20 - Elevated prostate specific antigen [PSA] Category: Medical Plan: Reminded?patient?that?he?has?a?repeat?PSA?level?ordered?and?he?will?get?this?don e?prior?to?next?visit. Medications: New citalopram 20 mg PO DAILY 90 days 90 tabs 3RF
[2025-01-02 14:11] VITALS: BP 116/60; PULSE 70; RESP 14; TEMP 37.1; O2SAT 93; BMI 33.4
== END 2025-01-02 15:20 | disposition home or self-care (01) ==
PROVIDERS: PCP Family Medicine; Visit Provider Family Medicine
DX: G47.9 Sleep disorder, unspecified (principal); F41.9 Anxiety disorder, unspecified; R07.89 Other chest pain; E78.00 Pure hypercholesterolemia, unspecified; R97.20 Elevated prostate specific antigen [PSA]

== ENCOUNTER → 2025-01-02 13:54 | Outpatient (BNVA) | payer OTHER, SELFPAY | PROVIDERS: PCP Family Medicine; Visit Provider Family Medicine ==

== ENCOUNTER 2025-02-11 15:48 | Outpatient (AMB) | payer OTHER, SELFPAY ==
--- NOTE | 2025-02-11 15:58 | MHC.PC.OV ---
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 He is on trazodone at night for sleep and anxiety. He notes he had not been able to tolerate citalopram - did not seem to work well for him. Has complaints of knee pain. Has been working on weight loss to try and alleviate the pain. Blood pressure today elevated at 150/70. Elevated PSA. He recalls he had an episode of being unable to urinate x1 day. [facility] Medical History Kidney stones Cellulitis of left leg Shingles Family History Maternal Grandmother High cholesterol Sister Substance abuse Social History Household Members: Spouse Both parents involved: No Caregiver staying overnight: No Housing: House Are you a primary manager primary care to a significant other at home: No Do you presently have visiting nurse or other home services: No Alcohol intake: never Patient Tobacco Use Status: Never used Tobacco e-Cigarette/Vaping Use: Never Used Special janis needs: No service: Yes Current occupational status: employed Current occupation: Builder, self employed Cognitive needs: No Hearing needs: No Vision needs: No Questionnaire PHQ-9 Over the last 2 weeks, how often have you been bothered by any of the following problems? 1. Little interest or pleasure in doing things: not at all 2. Feeling down, depressed, or hopeless: not at all 3. Trouble falling or staying asleep, or sleeping too much: several days 4. Feeling tired or having little energy: not at all 5. Poor appetite or overeating: not at all 6. Feeling bad about yourself - or that you are a failure or have let yourself or your family down: not at all 7. Trouble concentrating on things, such as reading the newspaper or watching television: not at all 8. Moving or speaking so slowly that other people could have noticed. Or the opposite - being so fidgety or restless that you have been moving around a lot more than usual: not at all 9. Thoughts that you would be better off or of hurting yourself in some way: not at all Total score: 1 Depression Screening Interpretation: Negative Depression Screening Done: Yes 58924 - PHQ-9 Billing: Yes Source: Developed by Drs. Roger Dc, Anne Fink, Juan Ramires and colleagues, with an educational iliana from [employer]. Thrive Questionnaire Date Thrive assessed: 12/03/24 JOSHUA-7 AMB Questionnaire JOSHUA-7 Date JOSHUA - 7 assessed: 02/11/25 Feeling nervous, anxious, or on edge: 2 = More than half the days Not being able to stop or control worryin = Several days Worrying too much about different things: 1 = Several days Trouble relaxin = Several days Being so restless that it is hard to sit still: 0 = Not at all Becoming easily annoyed or irritable: 1 = Several days Feeling afraid as if something awful might happen: 0 = Not at all Total JOSHUA-7 score (0-4 normal; 5-9 mild; 10-14 moderate; 15-21 severe): 6 Source: Developed by Drs. Roger Dc, Juan Marino and colleagues, with an educational iliana from [employer]. JOSHUA-7 Assessment Billing JOSHUA-7 Assessment Tool: JOSHUA-7 Assessment 58278 Review of Systems Const Denies chills, Denies fatigue, Denies fever(s), Denies headache(s) and Denies weakness ENT Denies dizziness and Denies headache(s) Card Denies dyspnea Resp Denies cough, Denies dyspnea, Denies wheezing and Denies other (shortness of breath) Musc Denies numbness and Denies tingling Neuro Denies dizziness, Denies headache(s), Denies numbness, Denies tingling and Denies weakness Psych Denies anxiety and Denies depression Endo Denies fatigue Aller/Immun Denies wheezing Physical exam (Primary Care) Vital Signs: Last Vital Signs Temp 100.4 F 02/11/25 16:11 Pulse 55 02/11/25 16:11 Resp 16 02/11/25 16:11 BP 150/70 H 02/11/25 16:16 Pulse Ox 97 02/11/25 16:11 Oxygen Delivery Method Room Air 02/11/25 16:11 BMI result Body Mass Index 31.3 Tobacco/Smoking Status: Tobacco use Status Tobacco use date assessed 03/05/24 02/11/25 15:58 Patient Tobacco Use Status Never used Tobacco 02/11/25 15:58 e-Cigarette/Vaping Use Never Used 02/11/25 15:58 PHQ-9: PHQ-9 Score PHQ-9: Total score 1 02/11/25 16:08 Depression Screening Interpretation: Negative Thrive Assessment: Date of Thrive Assessment Date Thrive assessed 12/03/24 02/11/25 15:58 Const General: well developed; No acute distress Nutritional Appearance: well nourished Orientation/consciousness: patient oriented x3 HENMT Head: Yes normocephalic and Yes atraumatic Eyes General: appearance normal, both eyes and all related structures Pupils: Equal, round and reactive pupils present EOM: EOMs intact bilaterally Resp Effort & Inspection: normal respiratory effort Neuro General: patient oriented x3 and gait normal Cranial nerves: Yes Equal, round and reactive pupils present Psych Affect: normal affect Coding Level of Care Code Est Pt Level 5 (55500) Diagnoses Anxiety F41.9 Elevated PSA R97.20 Knee pain M25.569 Elevated blood pressure reading R03.0 Additional Codes JOSHUA-7 Assessment Billing - JOSHUA-7 Assessment Tool: JOSHUA-7 Assessment 00718 ([id number]) PHQ-9 - 96706 - PHQ-9 Billing: Yes ([id number]) Assessment & Plan Assessment & Plan (1) Anxiety: Code(s): F41.9 - Anxiety disorder, unspecified Category: Medical Plan: Did?not?tolerate?citalopram. Says?trazodone?is?helping?however?and?he?has?been?less?anxious?lately Continue?trazodone He?will?let?know?if?anxiety?is?worsening?again (2) Elevated PSA: Code(s): R97.20 - Elevated prostate specific antigen [PSA] Category: Medical Plan: He?is?a?with?mildly?elevated?before. He?says?he?had?an?episode?where?was?unable?urinate?for?a?day. Repeating?PSA?today?and?will?also?check?creatinine?level?to?assess?for?any?acute?kidney?injury Go?to?ED?if?unable?urinate Referred?to?urology (3) Knee pain: Code(s): M25.569 - Pain in unspecified knee Category: Medical Plan: Mary some OA Advised?ongoing?weight?will NSAIDs Ice?and?heat Can?wrap?knee?when?exercising?impact?activities - take?off?otherwise Start?physical?therapy (4) Elevated blood pressure reading: Code(s): R03.0 - Elevated blood-pressure reading, without diagnosis of hypertension Category: Medical Plan: Blood?pressures?have?been?control?before.??Patient?also?has?mild?elevated?temperature?today. Advised?relaxation?rest?and?fluids EKG: ?Sinus?bradycardia, 48?beats?per?minute, incomplete?right?bundle-branch?block QRS?104?msec. Patient?notes?occasional?mild?chest?discomfort. Checking?stress?test. Orders: Orders PT Evaluation and Treatment Today M25.569 - Pain in unspecified knee Prostate Specific Antigen Scr Today R33.9 - Retention of urine, unspecified, Z12.5 - Encounter for screening for malignant neoplasm of prostate Basic Metabolic Panel Today R33.9 - Retention of urine, unspecified, Z00.00 - Encounter for general adult medical examination without abnormal findings Complete Blood Count Auto Diff Today R03.0 - Elevated blood-pressure reading, without diagnosis of hypertension, Z00.00 - Encounter for general adult medical examination without abnormal findings CA stress test Today R07.89 - Other chest pain Referrals Urology Referral R33.9 - Retention of urine, unspecified, R97.20 - Elevated prostate specific antigen [PSA] Medications: Changed From trazodone 50 mg PO BEDTIME 30 days PRN 30 tabs 0RF sleep To trazodone 50 mg PO BEDTIME 90 days PRN 90 tabs 0RF sleep
[2025-02-11 16:11] VITALS: BP 150/70; PULSE 55; RESP 16; TEMP 38; O2SAT 97; BMI 31.3
[2025-02-11 16:16] VITALS: BP 150/70
== END 2025-02-11 17:03 | disposition home or self-care (01) ==
LOC: HO.HMCFM 15:48
PROVIDERS: PCP Family Medicine; Visit Provider Family Medicine
DX: F41.9 Anxiety disorder, unspecified (principal); R97.20 Elevated prostate specific antigen [PSA]; R03.0 Elevated blood-pressure reading, without diagnosis of hypertension; M25.561 Pain in right knee; M25.562 Pain in left knee

== ENCOUNTER → 2025-02-11 15:48 | Outpatient (BNVA) | payer OTHER, SELFPAY | PROVIDERS: PCP Family Medicine; Visit Provider Family Medicine | DX: F41.9 Anxiety disorder, unspecified (principal); R97.20 Elevated prostate specific antigen [PSA]; M25.569 Pain in unspecified knee; R03.0 Elevated blood-pressure reading, without diagnosis of hypertension; Z79.899 Other long term (current) drug therapy | CPT/HCPCS: 96127 ==

== ENCOUNTER 2025-02-12 15:23 | Outpatient (REF) | payer OTHER, SELFPAY ==
[2025-02-12 18:20] LABS: MANUAL DIFF FLAG NO
[2025-02-12 18:33] LABS: Basophils Percent Auto 0.3 % (0-2); Eosinophils Percent Auto 0.4 % (0-4); Hematocrit 44.2 % (42.0-52.0); Hemoglobin 15.5 g/dl (14.0-18.0); Imm Gran Abs Auto 0.02 X10*3/uL (0.00-0.03); Imm Gran Pct Auto 0.3 % (0.0-0.4); Lymphocytes Absolute Auto 1.4 X10*3/uL (1.2-4.9); Lymphocytes Percent Auto 19.6 % (20-40); Mean Corpuscular HGB Conc 35.1 g/dl (31.0-36.0); Mean Corpuscular Hemoglobin 30.4 pg (27.0-33.0); Mean Corpuscular Volume 86.7 fL (80.0-98.0); Monocytes Absolute Auto 0.5 X10*3/uL (0.1-1.2); Monocytes Percent Auto 7.2 % (2-11); Neutrophils Absolute Auto 5.1 x10*3/uL (2.0-8.3); Neutrophils Percent Auto 72.2 % (45-73); Platelet Count 214 X10*3/uL (160-400); Red Cell Distribution Width 13.5 % (11.0-16.0)
[2025-02-12 18:40] LABS: Anion Gap 12 (12-20); Blood Urea Nitrogen 17 mg/dL (9-16); Carbon Dioxide 27 mmol/L (22-29); Chloride 103 mmol/L (96-108); Estimated Glomerular Filt Rate > 60; Glucose Random 167 mg/dL (60-115); Potassium 3.6 mmol/L (3.3-5.1); Sodium 138 mmol/L (135-145)
[2025-02-12 19:01] LABS: Prostate Specific Antigen Scr 3.75 ng/mL (<0.05-4.0)
== END 2025-02-12 15:24 | disposition home or self-care (01) ==
LOC: HO.WFDLDS 15:23
PROVIDERS: Visit Provider Family Medicine
DX: Z00.00 Encounter for general adult medical examination without abnormal findings (principal); Z12.5 Encounter for screening for malignant neoplasm of prostate; R33.9 Retention of urine, unspecified; R03.0 Elevated blood-pressure reading, without diagnosis of hypertension
CPT/HCPCS: 36415; 80048; 84153; 85025

== ENCOUNTER 2025-02-13 11:14 | Outpatient (AMB) | payer OTHER, SELFPAY ==
--- NOTE | 2025-02-13 11:12 | A.OFFPC_ITS ---
Intake Visit Reasons: Pain in L chest / review medication Neso Allergies No Known Allergies Allergy (Verified 02/11/25 16:07) Medication List - Last Reconciled 02/13/25 by Ascencion Silva MD aspirin (Adult Low Dose Aspirin) 81 mg PO DAILY blood sugar diagnostic (vpod.tvTouch Ultra Test strips) As directed check the blood sugar once a day blood-glucose meter As directed check the blood sugar once a day One touch ULTRA lancets (OneTouch Delica Plus Lancet) USE TO CHECK BLOOD SUGAR ONCE EVERY DAY tamsulosin 0.8 mg PO DAILY trazodone 50 mg PO BEDTIME PRN 90 days Tobacco use date assessed: 03/05/24 Dental Screening Dental Screen Date: 02/01/24 HPI Pain in L chest / review medication Neso HPI Details 59 y/o male presents to discuss L chest pain via telemedicine. Had experienced chest pain earlier this week which improved when he took an aspirin. Pain not associated with exertion. Denies weakness/dizziness. Recent EKG did not show any ischemia or infarction. [facility] Medical History Kidney stones Cellulitis of left leg Shingles Family History Maternal Grandmother High cholesterol Sister Substance abuse Social History Household Members: Spouse Both parents involved: No Caregiver staying overnight: No Housing: House Are you a primary health care facilities inspector to a significant other at home: No Do you presently have visiting nurse or other home services: No Alcohol intake: never Patient Tobacco Use Status: Never used Tobacco e-Cigarette/Vaping Use: Never Used Special janis needs: No service: Yes Current occupational status: employed Current occupation: Builder, self employed Cognitive needs: No Hearing needs: No Vision needs: No Questionnaire Thrive Questionnaire Date Thrive assessed: 12/03/24 JOSHUA-7 AMB Questionnaire JOSHUA-7 Date JOSHUA - 7 assessed: 02/11/25 Source: Developed by Drs. Roger Dc, Anne Fink, Juan Ramires and colleagues, with an educational iliana from [employer]. Review of Systems Const Denies chills, Denies fatigue, Denies fever(s), Denies headache(s) and Denies weakness ENT Denies dizziness and Denies headache(s) Card Denies dyspnea Resp Denies cough, Denies dyspnea, Denies wheezing and Denies other (shortness of breath) Musc Denies numbness and Denies tingling Neuro Denies dizziness, Denies headache(s), Denies numbness, Denies tingling and Denies weakness Psych Denies anxiety and Denies depression Endo Denies fatigue Aller/Immun Denies wheezing Physical exam (Primary Care) Tobacco/Smoking Status: Tobacco use Status Tobacco use date assessed 03/05/24 02/13/25 11:13 Patient Tobacco Use Status Never used Tobacco 02/13/25 11:13 e-Cigarette/Vaping Use Never Used 02/13/25 11:13 Thrive Assessment: Date of Thrive Assessment Date Thrive assessed 12/03/24 02/13/25 11:13 Telehealth Telehealth Telehealth Platform: Telephone Location of provider rendering services: practice address Location of patient: address on file Patient Identification confirmed using: Name, : Yes Telehealth method: voice only Patient verbally consented to treatment: Yes Patient verbally consented to billing insurance company: Yes Patient informed of any privacy concerns related to visit: Yes Minutes spent on Phone/Video with Pt.: 9 Coding Level of Care Code Tele Est Pt Level 2 (53103) Diagnoses Left-sided chest pain R07.9 Knee pain M25.569 Assessment & Plan Assessment & Plan (1) Left-sided chest pain: Code(s): R07.9 - Chest pain, unspecified Category: Medical Plan: Focal?left?upper?chest?pain?which?does?not?radiate.??Not?associated?with?exertio n. No?weakness?dizziness?diaphoresis?or?other?associated?symptoms. Patient?had?a?recent?EKG?which?did?not?show?any?ischemia?or?infarction He?has?a?stress?test?ordered. Reviewed?symptoms?of?cardiac?chest?pain?and?advise?patient?that?if?he?is?having? this?type?pain?for?more?than? a?few?minutes?while?resting,?he?should?go?to?the?ED?urgent?care. Will?follow-up?patient?after?stress?test (2) Knee pain: Code(s): M25.569 - Pain in unspecified knee Category: Medical Plan: Patient?has?ongoing?knee?pain.??Had?referred?him?to?physical?therapy. Will?ask?the?office?check?on?status?of?order
== END 2025-02-13 17:05 | disposition home or self-care (01) ==
LOC: HO.HMCFM 11:14
PROVIDERS: PCP Family Medicine; Visit Provider Family Medicine
DX: R07.9 Chest pain, unspecified (principal); M25.569 Pain in unspecified knee

== ENCOUNTER → 2025-02-13 11:14 | Outpatient (BNVA) | payer OTHER, SELFPAY | PROVIDERS: PCP Family Medicine; Visit Provider Family Medicine ==

== ENCOUNTER 2025-04-09 13:57 | Outpatient (AMB) | payer OTHER, SELFPAY ==
--- NOTE | 2025-04-09 14:04 | MHC.PC.OV ---
Vital Signs 04/09/25 14:06 Height 5 ft 10 in Weight 207 lb 2 oz BMI 29.7 BP 130/60 Blood Pressure Location Lt brachial Position Sitting Respiration 14 Pulse 56 Pulse Source Pulse Oximeter Temp 98.7 F Temp Source Oral Pulse Oximetry (%) 97 Oxygen Delivery Method Room Air Intake Visit Reasons: f/u elevated BP reading, labs Intake Note: patient is scheduled for lab review and b/p Cogeneration Operator Required: No Allergies No Known Allergies Allergy (Verified 04/10/25 15:56) Medication List - Last Reconciled 04/09/25 by Ascencion Silva MD amoxicillin 500 mg PO TID aspirin (Adult Low Dose Aspirin) 81 mg PO DAILY blood sugar diagnostic ([employer] Ultra Test strips) As directed check the blood sugar once a day blood-glucose meter As directed check the blood sugar once a day One touch ULTRA lancets ([employer] Delica Plus Lancet) USE TO CHECK BLOOD SUGAR ONCE EVERY DAY losartan 50 mg PO DAILY 90 days tamsulosin 0.8 mg PO DAILY trazodone 50 mg PO BEDTIME PRN 90 days Tobacco use date assessed: 03/05/24 Dental Screening Dental Screen Date: 02/01/24 HPI f/u elevated BP reading, labs HPI Details 59 y/o male presents to f/u chest pain, elevated BP readings. Pt had been having complaints of L sided chest pain which does not radiate. Not associated with exertion. Blood pressure today 130/60, 56p. Reports ongoing knee pain. Pt notes he has been walking half an hour and is worried about balancing his knees and limiting cardiovascular activities. [facility] Medical History Kidney stones Cellulitis of left leg Shingles Family History Maternal Grandmother High cholesterol Sister Substance abuse Social History Household Members: Spouse Housing: House Are you a primary home day care provider to a significant other at home: No Do you presently have visiting nurse or other home services: No Alcohol intake: never Patient Tobacco Use Status: Never used Tobacco e-Cigarette/Vaping Use: Never Used Special janis needs: No service: Yes Current occupational status: employed Current occupation: Builder, self employed Cognitive needs: No Hearing needs: No Vision needs: No Questionnaire Thrive Questionnaire Date Thrive assessed: 12/03/24 I am a: Patient What is your living situation today?: I have a steady place to live Within the past 12 months, did the food you bought not last and you didn't have the money to get more?: I choose not to answer this question Within the past 12 months, did you worry whether your food would run out before you got money to buy more?: I choose not to answer this question Do you have trouble paying for medicines?: I choose not to answer this question Do you have trouble getting transportation to medical appointments?: I choose not to answer this question Do you have trouble paying your heating and electricity bill?: I choose not to answer this question Do you have trouble taking care of your child, family member or friend?: I choose not to answer this question Do you have trouble with day-to-day activities such as bathing, preparing meals, shopping, managing finances, etc.?: I choose not to answer this question Are you currently unemployed and looking for a job?: I choose not to answer this question Are you interested in more education?: I choose not to answer this question Please select the resources that you would like help with: None Currently or been in a relationship where the following occur: No concerns reported THRIVE Score: 0 JOSHUA-7 AMB Questionnaire JOSHUA-7 Date JOSHUA - 7 assessed: 02/11/25 Source: Developed by Drs. Roger Dc, Anne Fink, Juan Ramires and colleagues, with an educational iliana from [employer]. Review of Systems Const Denies chills, Denies fatigue, Denies fever(s), Denies headache(s) and Denies weakness ENT Denies dizziness and Denies headache(s) Card Denies dyspnea Resp Denies cough, Denies dyspnea, Denies wheezing and Denies other (shortness of breath) Musc Denies numbness and Denies tingling Neuro Denies dizziness, Denies headache(s), Denies numbness, Denies tingling and Denies weakness Psych Denies anxiety and Denies depression Endo Denies fatigue Aller/Immun Denies wheezing Physical exam (Primary Care) Vital Signs: Last Vital Signs Temp 98.7 F 04/09/25 14:06 Pulse 56 04/09/25 14:06 Resp 14 06/10/25 14:06 BP 130/60 04/09/25 14:06 Pulse Ox 97 04/09/25 14:06 Oxygen Delivery Method Room Air 04/09/25 14:06 BMI result Body Mass Index 29.7 Tobacco/Smoking Status: Tobacco use Status Tobacco use date assessed 03/05/24 04/09/25 14:04 Patient Tobacco Use Status Never used Tobacco 04/09/25 14:04 e-Cigarette/Vaping Use Never Used 04/09/25 14:04 Thrive Assessment: Date of Thrive Assessment Date Thrive assessed 12/03/24 04/09/25 14:04 Currently or been in a relationship where the following occur: No concerns reported Const General: well developed; No acute distress Nutritional Appearance: well nourished Orientation/consciousness: patient oriented x3 HENMT Head: Yes normocephalic and Yes atraumatic Eyes General: appearance normal, both eyes and all related structures Pupils: Equal, round and reactive pupils present EOM: EOMs intact bilaterally Resp Effort & Inspection: normal respiratory effort Neuro General: patient oriented x3 and gait normal Cranial nerves: Yes Equal, round and reactive pupils present Psych Affect: normal affect Coding Level of Care Code Est Pt Level 4 (60368) Diagnoses Left-sided chest pain R07.9 Elevated blood pressure reading R03.0 Knee pain M25.569 Elevated fasting blood sugar R73.01 Assessment & Plan Assessment & Plan (1) Left-sided chest pain: Code(s): R07.9 - Chest pain, unspecified Category: Medical (2) Elevated blood pressure reading: Code(s): R03.0 - Elevated blood-pressure reading, without diagnosis of hypertension Category: Medical Plan: Blood?pressure?is?controlled?on?losartan Continue?current?medication.??Goal?is?less?than?140/90 Continue?weight?loss Encouraged?exercise (3) Knee pain: Code(s): M25.569 - Pain in unspecified knee Category: Medical Plan: Bilateral?knee?pain,?right?worse?than?left Demonstrated?exercises If?not?improving?he?will?let?know (4) Elevated fasting blood sugar: Code(s): R73.01 - Impaired fasting glucose Category: Medical Plan: Patient?continues?to?lose?weight?and?is?watching?the?sugars?and?starches?in?his?diet Continue?to?monitor Encouraged?further?weight?loss?and?exercise Plan He?will?return?in?about?3?months?to?follow-up?hypertension,?elevated?fasting?blood?sugar?and?we?will?review?stress?test.??Will?call?patient?sooner?if?stress?test?requires?further?action. Orders: Orders Comprehensive [place]. Panel Fast 04/09/25 Z00.00 - Encounter for general adult medical examination without abnormal findings Microalbumin, Random (w Creat) 04/09/25 I10 - Essential (primary) hypertension
[2025-04-09 14:06] VITALS: BP 130/60; PULSE 56; RESP 14; TEMP 37.1; O2SAT 97; BMI 29.7
== END 2025-04-09 14:55 | disposition home or self-care (01) ==
LOC: HO.HMCFM 13:58
PROVIDERS: PCP Family Medicine; Visit Provider Family Medicine
DX: R07.9 Chest pain, unspecified (principal); R03.0 Elevated blood-pressure reading, without diagnosis of hypertension; M25.569 Pain in unspecified knee; R73.01 Impaired fasting glucose

== ENCOUNTER → 2025-04-09 13:57 | Outpatient (BNVA) | payer OTHER, SELFPAY | PROVIDERS: PCP Family Medicine; Visit Provider Family Medicine | DX: Z13.89 Encounter for screening for other disorder (principal) ==

== ENCOUNTER 2025-04-10 14:31 | Outpatient (AMB) | payer OTHER, SELFPAY ==
--- NOTE | 2025-04-10 14:39 | MHC.OFFVIS ---
Intake Visit Reasons: elevated PSA, intermittent urinary retention Intake Note: New patient presents today for initial visit for elevated PSA/intermittent urinary retention Urology Medication:None Blood Thinner:None Antibiotic Allergies:none PVR:43ml Allergies No Known Allergies Allergy (Verified 04/10/25 15:56) Medication List - Last Reconciled 04/10/25 by BEAU Noriega-MARY amoxicillin 500 mg PO TID aspirin (Adult Low Dose Aspirin) 81 mg PO DAILY losartan 50 mg PO DAILY 90 days tamsulosin 0.8 mg PO DAILY trazodone 50 mg PO BEDTIME PRN 90 days HPI Comments Details: Cortez Kate is a 59-year-old male patient of Dr. Silva. He has a past medical history of nephrolithiasis, shingles, and cellulitis. He presents to the office today as a new patient for ongoing lower urinary tract symptoms and elevated PSA. In discussion with the patient today he reports having followed up with a urologist and [place] for issues with urinary retention however upon initial assessment postvoid residual noted patient was emptying his bladder. He reports having had SIHAN with urologist in [place] and was diagnosed with benign prostatic hyperplasia. He reports having had recent blood work for his PCP and was noted to have an elevated PSA in recommendations were made for redraw and urology referral for further assessment evaluation. These results were reviewed and communicated with the patient today. PSA: 12/25 4.0, 02/22 3.8 He reports being on Flomax 0.8 mg daily and was prescribed this by his neurologist to he had been following up with since late year for ongoing neuralgia pain he had experienced after having shingles. He does feel Flomax has been helpful however most recently has been experiencing episodes of urinary hesitancy. In office urinalysis results reviewed with the patient today. PVR 43 mL. He does experience he issues with urinary dribbling and nocturia. We did discussed potential causes of these lower urinary tract symptoms as well as further treatment options and risks and benefits of these treatment options. We discussed potential causes of elevated PSA. We discussed obtaining retroperitoneal ultrasound for further assessment evaluation. We also discussed near future in office cystoscopy and or urodynamics for further assessment evaluation. He denies incontinence, hematuria, dysuria, foul smelling urine, flank pain, fever, and or chills. We discussed lifestyle modifications to assist with lower urinary tract symptoms as well as importance of management and diabetes for improvement in lower urinary tract symptoms as well as overall health and well-being. All questions were answered. He otherwise offers no other issues or concerns at this time. [facility] Medical History Kidney stones Cellulitis of left leg Shingles Family History Maternal Grandmother High cholesterol Sister Substance abuse Social History Household Members: Spouse Both parents involved: No Caregiver staying overnight: No Housing: House Are you a primary primary health care nurse to a significant other at home: No Do you presently have visiting nurse or other home services: No Alcohol intake: never Patient Tobacco Use Status: Never used Tobacco e-Cigarette/Vaping Use: Never Used Special janis needs: No service: Yes Current occupational status: employed Current occupation: Builder, self employed Cognitive needs: No Hearing needs: No Vision needs: No Review of Systems Const All systems reviewed & are unremarkable except as noted in HPI and below Physical Exam Const General: cooperative, healthy appearing, comfortable, no acute distress, well developed, alert and awake Orientation/consciousness: patient oriented x3 Limitations: no limitations HEENT Head: Yes normal to inspection, Yes normocephalic and Yes atraumatic Ears: hearing grossly normal bilaterally Eyes General: appearance normal, both eyes and all related structures Neck Neck: Yes normal visual inspection and Yes trachea midline Chest Chest palpation & inspection: normal inspection of the chest Resp Effort & Inspection: normal respiratory effort and able to speak in complete sentences Cardio Rate: regular rate GI Inspection: Yes normal to inspection General: Yes no CVA tenderness Back/Spine/Pelvis Back: no CVA tenderness Skin General skin exam: no rashes or lesions noted Neuro General: patient oriented x3 Extrem General: Yes normal to inspection Psych Appearance: grossly normal and well kempt Mental Status: mental status grossly normal Speech and movement: Normal speech and movement present and Clear speech present Affect: normal affect Attitude: cooperative Thought process: Normal thought process present Thought content: Normal thought content present Insight: Fair insight present (Psych) Judgement: Fair judgement present (Psych) Results AMB Urinalysis, Automated UA Leukoctes 0 Margarita/uL Last Edit by Ayesha Shine on 04/10/25 14:50 UA Nitrite Negative Last Edit by Ayesha Shine on 04/10/25 14:50 UA Urobilinogen 3.5 mg/dL Last Edit by Ayesha Shine on 04/10/25 14:50 UA Protein 1 mg/dL Last Edit by Ayesha Shine on 04/10/25 14:50 UA pH 5.5 Last Edit by Ayesha Shine on 04/10/25 14:50 UA Blood 0 Hiro/uL Last Edit by Ayesha Shine on 04/10/25 14:50 UA Specific [place] 1.025 Last Edit by Ayesha Shine on 04/10/25 14:50 UA Ketone Negative Last Edit by Ayesha Shine on 04/10/25 14:50 UA Bilirubin 0 mg/dL Last Edit by Ayesha Shine on 04/10/25 14:50 UA Glucose 0 mg/dL Last Edit by Ayesha Shine on 04/10/25 14:50 Results Reviewed Results Reviewed: Laboratory Last Values Urine pH (Auto) 5.5 04/10/25 08:32 Specific [place] (Auto) 1.025 04/10/25 08:32 Urine Protein (Auto) 1 mg/dL 04/10/25 08:32 Glucose (UA)(Auto) 0 mg/dL 04/10/25 08:32 Urine Ketones (Auto) Negative 04/10/25 08:32 Urine Blood (Auto) 0 Hiro/uL 04/10/25 08:32 Urine Nitrite (Auto) Negative 04/10/25 08:32 Urine Bilirubin (Auto) 0 mg/dL 04/10/25 08:32 Urine Urobilinogen (Auto) 3.5 mg/dL 04/10/25 08:32 Leukocyte Esterase (Auto) 0 Margarita/uL 04/10/25 08:32 Assessment & Plan Assessment & Plan (1) Urinary hesitancy: Code(s): R39.11 - Hesitancy of micturition Category: Medical (2) Elevated PSA: Code(s): R97.20 - Elevated prostate specific antigen [PSA] Category: Medical Plan In office urinalysis results reviewed with the patient today; as noted above. PVR 43 mL. Recent PSA results reviewed with the patient today; as noted above. Continue Flomax as discussed and prescribed. We did discuss trial of a different alpha-gabino. We discussed lifestyle modifications to assist with lower urinary tract symptoms such as limiting fluids 2-3 hours prior to bed as well as attempting to sit when urinating to relax pelvis to assist with bladder emptying. We also discussed the importance of management and diabetes for improvement lower urinary tract symptoms as well as overall health and well-being. We discussed potential near future in office cystoscopy and or urodynamics for further assessment evaluation. Will obtain redraw of PSA. Will obtain retroperitoneal ultrasound for further assessment evaluation. Follow-up in 3-4 months with imaging and labs; or sooner with any issues, concerns, and or questions. Orders: Orders PSA,Total (Free>4and<10) Today R97.20 - Elevated prostate specific antigen [PSA] AMB Urinalysis Automated Today Z13.9 - Encounter for screening, unspecified AMB Post Void Residual by ultrasound Today R33.9 - Retention of urine, unspecified US retroperitoneal comp Today R39.11 - Hesitancy of micturition Patient Instructions: The patient had an opportunity to ask questions regarding the treatment plan. All questions were answered. Physical exam, labs, and imaging were discussed and reviewed in detail. As well as risks, benefits, and discussion of treatment choices. No major barriers to understanding were identified. The patient expressed understanding and agreement with the above treatment plan. The patient was made aware they should contact our office by phone for worsening of their current condition, the appearance of new symptoms, or with any questions or concerns. Compliance is encouraged with any medications and follow up testing that is ordered. It is a privilege to be allowed the opportunity to participate in? your urological care.? Again, if you have any questions or concerns If you have any questions or concerns please do not hesitate to contact me. The office is [phone]. This note is constructed using voice recognition software. While every effort has been made to ensure accuracy rubber press operator errors may have been included. Yours sincerely, IZA Noriega Coding Level of Care Code New Pt Level 4 (96447) Diagnoses Urinary hesitancy R39.11 Elevated PSA R97.20 Time Spent (min) 35
== END 2025-04-10 15:25 | disposition home or self-care (01) ==
LOC: HO.HUSH 14:31
PROVIDERS: PCP Family Medicine; Visit Provider Nurse Practitioner Family
DX: R39.11 Hesitancy of micturition (principal); R97.20 Elevated prostate specific antigen [PSA]; Z13.9 Encounter for screening, unspecified
CPT/HCPCS: 99204

== ENCOUNTER → 2025-04-10 14:31 | Outpatient (BNVA) | payer OTHER, SELFPAY | PROVIDERS: PCP Family Medicine; Visit Provider Nurse Practitioner Family | DX: R33.9 Retention of urine, unspecified (principal) | CPT/HCPCS: 81003 ==

== ENCOUNTER → 2025-05-24 09:36 | Outpatient (REF) | payer BC, SELFPAY ==
--- NOTE | 2025-05-24 09:40 | CA_ITS ---
Acquisition Time: 2025-05-24 09:52:53 Total Exercise Time: 00:08:55 Test Indications: chest pain Medications: Protocol: MELODY Max HR: 142 BPM 89% of Pred: 159 BPM Max BP: 142/78 mmHG Max Work Load: 10.1 METS Exercise stress test with exercise 8 mins 55 secs of Melody Protocol, achieving 88% MPHR, with reports of SOB, no chest pain, with isolated PVC, with normotensive response to exercise. Without EKG changes meeting criteria for ischemia. In recovery, pt's breathing returned to baseline. Test reviewed with Dr. Ho. Referred By: Ascencion Silva Electronically Signed By: Dhruv Holguin
--- OUTSIDE RECORDS SUMMARY | 2025-05-24 09:48 | XMS_ITS | Clinical Summary ---
Author Organization [facility] Address [address] [place] [id number] Phone Care Team Providers Care Algorithm Developer Name Role Phone Pcp, Unknown Primary Care Provider Unavailabl e Allergies No known active allergies Medications No known medications Social History Tobacco Use Types Packs/Day Years Used Date Smoking Tobacco: Never Assessed Education Answer Date Recorded Are you interested in more education? Not on rose e 01/30/2024 Are you concerned about learning? Not on file 01/30/2024 No 01/30/2024 No 01/30/2024 Digital Access Answer Date Recorded No 01/30/2024 No 01/30/2024 Reliable internet access at home? Not on file 01/30/2024 Device with a working camera? Not on file Intimate Partner Violence Answer Date R ecorded Are you denied basic needs s uch as food, clothing, or medical care? No 01/30/2024 In the past 12 months have y ou been in a relationship with a person who hurts, threatens, or tries to control you? No 01/30/2024 Are you denied basic needs s uch as food, clothing, or medical care? No 01/30/2024 In the past 12 months have y ou been in a relationship with a person who hurts, threatens, or tries to control you? No 01/30/2024 Sex and Gender Information Value Date Recorded Sex Assigned at Not on file Legal Sex Male 12:19 AM EDT Gender Identity Not on file Sexual Orientation Not on file Last Filed Vital Signs Vital Sign Reading Time Taken Comments Blood Pressure 148/77 01/30/2024 2:28 AM EDT Pulse 68 01/30/2024 2:28 AM EDT Temperature 37.3 C (99.1 F) 01/30/2024 2:28 AM EDT Respiratory Rate 20 01/30/2024 2:28 AM EDT Oxygen Saturation 97% 01/30/2024 2:28 AM EDT Inhaled Oxygen Concentration - - Weight 127 kg (280 lb) 01/30/2024 12:35 AM EDT Height 177.8 cm (5' 10 ) 01/30/2024 12:35 AM EDT Body Mass Index 40.18 01/30/2024 12:35 AM EDT Plan of Treatment Health Maintenance Due Date Last Done Comments Adult Td,Tdap Booster 1963 LIPID PANEL 1963 DEPRESSION SCREENING 1975 SMOKING Hx and SMOKELESS TOB ACCO SCREENING 1976 HEPATITIS C SCREENING 1981 HIV ONE-TIME SCREENING (18-6 5 YEARS) 1981 SCREENING FOR DIABETES 1998 COLOGUARD 2008 COLONOSCOPY 2008 COLORECTAL CANCER SCREENING 2008 FIT TEST 2008 FOBT 2008 SIGMOIDOSCOPY 2008 VIRTUAL COLONOSCOPY 2008 PNEUMOCOCCAL VACCINES (50+ y ears) (1 of 1 - PCV) 2013 ZOSTER VACCINES (1 of 2) 2013 RSV VACCINE (1 - Risk 60-74 years 1-dose series) 2023 COVID-19 VACCINE (1 - 2023-2 5 season) 2024 HEPATITIS A VACCINES Aged Out No long er eligible based on patient's age to complete this topic HIB VACCINES Aged Out No longer eligi ble based on patient's age to complete this topic MENINGOCOCCAL VACCINES (ACWY) Aged Out No longer eligible based on patient's age to complete this topic MENINGOCOCCAL VACCINES (B) Aged Out N o longer eligible based on patient's age to complete this topic Medical Devices Not on file Insurance [facility] Care Teams Algorithm Developer Relationship Specialty Start Date End Date Pcp, Unknown PCP - General 01/30/24 Additional Source Comments The information contained in this document represents components of the legal health record. It is not the complete legal health record.[facility]
== END ==
LOC: HO.CARD 09:36
PROVIDERS: PCP Family Medicine; Visit Provider Family Medicine
DX: R07.89 Other chest pain (principal)
CPT/HCPCS: 93017

== ENCOUNTER → 2025-05-24 09:40 | Outpatient (BNV) | payer BC, SELFPAY | PROVIDERS: PCP Family Medicine | DX: I49.3 Ventricular premature depolarization (principal); R06.02 Shortness of breath | CPT/HCPCS: 93016; 93018 ==

== ENCOUNTER 2025-07-02 14:02 | Outpatient (REF) | payer BC, SELFPAY ==
--- OUTSIDE RECORDS SUMMARY | 2025-07-02 15:17 | XMS_ITS | Clinical Summary ---
Author Organization [facility] Address [address] [place] [phone] Phone Care Team Providers Care Black And White Printer Operator Name Role Phone Pcp, Unknown Primary Care [...] topic Medical Devices Not on file Insurance [facility] Care Teams Black And White Printer Operator Relationship Specialty Start Date End Date Pcp, Unknown PCP - General 01/30/24 Additional Source Comments The information contained in this document represents components of the legal health record. It is not the complete legal health record.[facility]
[2025-07-02 18:06] LABS: Hemoglobin A1C 135.6245 umol/L; Total Hemoglobin (HGBA1C) 4029.1385 umol/L
[2025-07-02 18:11] LABS: Alanine Aminotransferase 34 U/L (0-40); Albumin Level 4.7 g/dL (3.5-5.0); Alkaline Phosphatase 41 U/L (39-117); Anion Gap 15 (12-20); Aspartate Amino Transferase 26 U/L (5-37); Blood Urea Nitrogen 20 mg/dL (9-16); Calcium 9.2 mg/dL (8.4-10.2); Carbon Dioxide 28 mmol/L (22-29); Chloride 104 mmol/L (96-108); Estimated Glomerular Filt Rate > 60; Potassium 5.1 mmol/L (3.3-5.1); Sodium 142 mmol/L (135-145); Total Protein 6.9 g/dL (6.5-8.0)
[2025-07-02 18:28] LABS: PSA,Total (Free>4and<10) 3.07 ng/mL (0.00-4.00)
[2025-07-02 19:27] LABS: Appearance Urine Clear; Glucose Urine UA Negative (Negative); PH 5.5 (5.0-9.0); Specific Gravity - Urine 1.015 (1.005-1.025); UMIC TRIGGER UA YES
[2025-07-02 19:38] LABS: Microalbum/Creatinine Ratio Ur 8.4 ug/mg cr (<30)
[2025-07-03 09:19] LABS: Lyme Abs Screen <0.90 index
== END 2025-07-02 14:03 | disposition home or self-care (01) ==
LOC: HO.WFDLDS 14:02
PROVIDERS: Nurse Practitioner Family; Visit Provider Family Medicine
DX: Z00.00 Encounter for general adult medical examination without abnormal findings (principal); Z12.5 Encounter for screening for malignant neoplasm of prostate; R97.20 Elevated prostate specific antigen [PSA]; R73.01 Impaired fasting glucose; R53.83 Other fatigue; I10 Essential (primary) hypertension
CPT/HCPCS: 36415; 80048; 80053; 81001; 82043; 82570; 83036; 84153; 86617; 86618

== ENCOUNTER 2025-07-04 13:45 | Outpatient (AMB) | payer BC, SELFPAY ==
--- NOTE | 2025-07-04 13:48 | A.OFFPC_ITS ---
Vital Signs 07/04/25 13:55 Height 5 ft 10 in Weight 197 lb 4 oz BMI 28.3 BP 113/61 Blood Pressure Location Lt brachial Position Sitting Respiration 16 Pulse 61 Pulse Source Pulse Oximeter Temp 97.4 F Temp Source Oral Pulse Oximetry (%) 98 Oxygen Delivery Method Room Air Intake Visit Reasons: f/u stress test, needs extra time Intake Note: patient here for follow up on stress test Drop Hammer Pile Driver Operator Required: No Allergies No Known Allergies Allergy (Verified 07/04/25 13:53) Medication List - Last Reconciled 07/04/25 by Ascencion Silva MD aspirin (Adult Low Dose Aspirin) 81 mg PO DAILY lancets (OneTouch Delica Plus Lancet) To Test Blood Sugar 1-2 times a day, As directed. 90 days tamsulosin 0.8 mg PO DAILY Tobacco use date assessed: 07/04/25 Dental Screening Dental Screen Date: 07/04/25 Did you have a dental visit in the last 12 months?: Yes Did you have a dental problem in the last 6 months where you did not have access to dental care?: No Was dental information given to patient?: Patient has dentist HPI f/u stress test, needs extra time HPI Details 59 y/o male presents to f/u L-sided ches t pain. Recent stress test 05/24/25 was fine. BP today is fine at 113/61, 61p. Recent A1c 5.2%. Reports ongoing difficulty sleeping. Has complaints of mild LE edema with venous stasis dermatitis. No current chest pain. [facility] Medical History Kidney stones Cellulitis of left leg Shingles Family History Maternal Grandmother High cholesterol Sister Substance abuse Social History Household Members: Spouse Both parents involved: No Caregiver staying overnight: No Housing: House Are you a primary animal care worker to a significant other at home: No Do you presently have visiting nurse or other home services: No Alcohol intake: never Patient Tobacco Use Status: Never used Tobacco e-Cigarette/Vaping Use: Never Used Special janis needs: No service: Yes Current occupational status: employed Current occupation: Builder, self employed Cognitive needs: No Hearing needs: No Vision needs: No Questionnaire Thrive Questionnaire Date Thrive assessed: 12/03/24 I am a: Patient What is your living situation today?: I have a steady place to live Within the past 12 months, did the food you bought not last and you didn't have the money to get more?: I choose not to answer this question Within the past 12 months, did you worry whether your food would run out before you got money to buy more?: I choose not to answer this question Do you have trouble paying for medicines?: I choose not to answer this question Do you have trouble getting transportation to medical appointments?: I choose not to answer this question Do you have trouble paying your heating and electricity bill?: I choose not to answer this question Do you have trouble taking care of your child, family member or friend?: I choose not to answer this question Do you have trouble with day-to-day activities such as bathing, preparing meals, shopping, managing finances, etc.?: I choose not to answer this question Are you currently unemployed and looking for a job?: I choose not to answer this question Are you interested in more education?: I choose not to answer this question Please select the resources that you would like help with: None Currently or been in a relationship where the following occur: No concerns reported THRIVE Score: 0 JOSHUA-7 AMB Questionnaire JOSHUA-7 Date JOSHUA - 7 assessed: 02/11/25 Source: Developed by Drs. Roger Dc, Anne Fink, Juan Ramires and colleagues, with an educational iliana from [employer] Review of Systems Const Denies chills, Denies fatigue, Denies fever(s), Denies headache(s) and Denies weakness ENT Denies dizziness and Denies headache(s) Card Denies dyspnea Resp Denies cough, Denies dyspnea, Denies wheezing and Denies other (shortness of breath) Musc Denies numbness and Denies tingling Neuro Denies dizziness, Denies headache(s), Denies numbness, Denies tingling and Denies weakness Psych Denies anxiety and Denies depression Endo Denies fatigue Aller/Immun Denies wheezing Physical exam (Primary Care) Vital Signs: Last Vital Signs Temp 97.4 F 07/04/25 13:55 Pulse 61 07/04/25 13:55 Resp 16 07/04/25 13:55 BP 113/61 07/04/25 13:55 Pulse Ox 98 07/04/25 13:55 Oxygen Delivery Method Room Air 07/04/25 13:55 BMI result Body Mass Index 28.3 Tobacco/Smoking Status: Tobacco use Status Tobacco use date assessed 07/04/25 07/04/25 13:57 Patient Tobacco Use Status Never used Tobacco 07/04/25 13:48 e-Cigarette/Vaping Use Never Used 07/04/25 13:48 Thrive Assessment: Date of Thrive Assessment Date Thrive assessed 12/03/24 07/04/25 13:48 Currently or been in a relationship where the following occur: No concerns reported Const General: well developed; No acute distress Nutritional Appearance: well nourished Orientation/consciousness: patient oriented x3 HENMT Head: Yes normocephalic and Yes atraumatic Eyes General: appearance normal, both eyes and all related structures Pupils: Equal, round and reactive pupils present EOM: EOMs intact bilaterally Resp Effort & Inspection: normal respiratory effort Neuro General: patient oriented x3 and gait normal Cranial nerves: Yes Equal, round and reactive pupils present Extrem Other: 1+ lower extremity edema, bilateral Psych Affect: normal affect Coding Level of Care Code Est Pt Level 4 (75399) Diagnoses Left-sided chest pain R07.9 Immunization counseling Z71.85 Difficulty sleeping G47.9 Venous stasis dermatitis I87.2 Lower extremity edema R60.0 Assessment & Plan Assessment & Plan (1) Left-sided chest pain: Code(s): R07.9 - Chest pain, unspecified Category: Medical Plan: No current chest pain Stress test was negative (2) Immunization counseling: Code(s): Z71.85 - Encounter for immunization safety counseling Category: Medical Plan: Advised he gets shingles shots (3) Difficulty sleeping: Code(s): G47.9 - Sleep disorder, unspecified Category: Medical Plan: Patient has worries about his health and has difficulty falling back asleep when he wakes up in the middle of the night. He says his mind continues to roll Trial sertraline He has a sleep medicine appointment pending (4) Venous stasis dermatitis: Code(s): I87.2 - Venous insufficiency (chronic) (peripheral) Category: Medical Plan: Secondary to lower extremity edema Elevate legs Avoid salt/sodium Compression stockings (5) Lower extremity edema: Code(s): R60.0 - Localized edema Category: Medical Plan: As above Orders: Orders Lipid Panel Today E78.00 - Pure hypercholesterolemia, unspecified, Z00.00 - Encounter for general adult medical examination without abnormal findings Comprehensive [place]. Panel Fast Today R73.01 - Impaired fasting glucose, Z00.00 - Encounter for general adult medical examination without abnormal findings Microalbumin, Random (w Creat) Today I10 - Essential (primary) hypertension, R73.01 - Impaired fasting glucose UA CC w/rflx Micro + Cult Today R73.01 - Impaired fasting glucose, Z00.00 - Encounter for general adult medical examination without abnormal findings Referrals Podiatry Referral L60.2 - Onychogryphosis Medications: New compr.stocking,knee,long,large 20-30 mmHg Daily As directed, 90 days 12 ea 3RF R60.0 - Localized edema sertraline 50 mg PO DAILY 90 tabs 3RF 90 days
[2025-07-04 13:55] VITALS: BP 113/61; PULSE 61; RESP 16; TEMP 36.3; O2SAT 98; BMI 28.3
--- OUTSIDE RECORDS SUMMARY | 2025-07-04 15:01 | XMS_ITS | Clinical Summary ---
Author Organization [facility] Address [address] [place] [phone] Phone Care Team Providers Care Cement Patcher Name Role Phone Pcp, Unknown Primary Care [...] topic Medical Devices Not on file Insurance [facility] Care Teams Cement Patcher Relationship Specialty Start Date End Date Pcp, Unknown PCP - General 01/30/24 Additional Source Comments The information contained in this document represents components of the legal health record. It is not the complete legal health record.[facility]
== END 2025-07-04 14:55 | disposition home or self-care (01) ==
LOC: HO.HMCFM 13:46
PROVIDERS: PCP Family Medicine; Visit Provider Family Medicine
DX: R07.9 Chest pain, unspecified (principal); Z71.85 Encounter for immunization safety counseling; G47.9 Sleep disorder, unspecified; I87.2 Venous insufficiency (chronic) (peripheral); R60.0 Localized edema

== ENCOUNTER 2025-07-10 15:17 | Outpatient (REF) | payer BC, SELFPAY ==
--- NOTE | ~2025-07-10 | US_ITS ---
EXAMINATION: US RETROPERITONEUM HISTORY: R39.11 - Hesitancy of micturition TECHNIQUE: Real-time grayscale ultrasound imaging of the kidneys was performed and images were reviewed. COMPARISON: There are no prior studies available for comparison. FINDINGS: Right kidney: The right kidney measures 11.9 x 5.1 x 6.1 cm. Renal parenchymal echotexture and thickness are normal. There is a 1.8 x 1.8 x 1.6 cm upper pole cyst. There is no hydronephrosis or renal calculi. Left Kidney: The left kidney measures 12.9 x 6.6 x 5.6 cm. Renal parenchymal echotexture and thickness are normal. There is a 3.5 x 3.3 x 3.7 cm upper pole cyst. There is no hydronephrosis or renal calculi. The urinary bladder is unremarkable. Bilateral ureteral jets are identified. Before voiding, the urinary bladder measured 6.4 x 5.6 x 8.0 cm, for an estimated volume of 150 mL. After voiding, the urinary bladder measured 3.5 x 2.5 x 3.3 cm, for an estimated volume of 15 mL. The prostate measures 6.3 x 5.1 x 5.7 cm, for an estimated volume of 96 mL. US/US retroperitoneal comp IMPRESSION: 1. Bilateral renal cysts as described. Otherwise unremarkable retroperitoneal ultrasound. 2. Post void bladder residual of 15 mL. 3. Estimated prostate volume of 96 mL. Electronically signed by: Roger Benz MD 07/10/2025 03:52 PM EDT
--- OUTSIDE RECORDS SUMMARY | 2025-07-10 18:17 | XMS_ITS | Clinical Summary ---
Author Organization [facility] Address [address] [place] [phone] Phone Care Team Providers Care Podiatry Professor Name Role Phone Pcp, Unknown Primary Care [...] - Risk 60-74 years 1-dose series) 2023 INFLUENZA VACCINE (#1) 2025 COVID-19 VACCINE (1 - 2023-2 5 season) 2025 HEPATITIS A VACCINES Aged Out No long [...] topic Medical Devices Not on file Insurance [facility] Care Teams Podiatry Professor Relationship Specialty Start Date End Date Pcp, Unknown PCP - General 01/30/24 Additional Source Comments The information contained in this document represents components of the legal health record. It is not the complete legal health record.[facility]
== END 2025-07-10 15:18 | disposition home or self-care (01) ==
LOC: HO.HMGCX 15:17
PROVIDERS: PCP Family Medicine; Visit Provider Nurse Practitioner Family
DX: R39.11 Hesitancy of micturition (principal)
CPT/HCPCS: 76770

== ENCOUNTER → 2025-07-10 15:19 | Outpatient (BNV) | payer BC, SELFPAY | PROVIDERS: PCP Family Medicine; Visit Provider Radiology Diagnostic Radiology | DX: N28.1 Cyst of kidney, acquired (principal) | CPT/HCPCS: 76770 ==

== ENCOUNTER 2025-07-17 14:51 | Outpatient (AMB) | payer BC, SELFPAY ==
--- NOTE | 2025-07-17 14:53 | MHC.OFFVIS ---
Intake Visit Reasons: 3m/US/PSA Intake Note: Patient is present for 3M/US/PSA Urology Medication:TAMSULOSIN Antibiotic Allergy:NONE Blood Thinner:ASPIRIN TODAY'S PVR: 0ML'S Surgical Territory Manager Required: No Allergies No Known Allergies Allergy (Verified 07/17/25 20:54) Medication List - Last Reconciled 07/17/25 by BEAU Noriega- aspirin (Adult Low Dose Aspirin) 81 mg PO DAILY compr.stocking,knee,long,large 20-30 mmHg Daily As directed, 90 days lancets (Travergence Delica Plus Lancet) To Test Blood Sugar 1-2 times a day, As directed. 90 days sertraline 50 mg PO DAILY 90 days terazosin 5 mg PO BEDTIME 30 days HPI Comments Details: Cortez Kate is a 59-year-old male patient of Dr. Silva. He has a past medical history of nephrolithiasis, shingles, and cellulitis. He presents to the office today for follow-up. Of note, patient was seen approximately 3 months ago as a new patient for a history of urinary retention, elevated PSA, enlarged prostate, and lower urinary tract symptoms at which time a PSA and retroperitoneal ultrasound were ordered for further assessment evaluation. These results were reviewed and communicated with the patient today. 07/25 bilateral kidneys are normal in echotexture and thickness. No hydronephrosis or renal calculi noted bilaterally. Bilateral renal cysts. The urinary bladder is unremarkable. Postvoid bladder volume of 15 mL. The prostate is measuring approximately 96 mL. He discusses previously following up with a urologist in [place] for issues with urinary retention. He reports having had ISHAN with urologist in [place] and was diagnosed with benign prostatic hyperplasia. He reports he has been on Flomax 0.8 mg daily and does feel this has been helpful however he feels his urinary hesitancy is worsening. He does have a family history of prostate cancer and therefore has been undergoing close surveillance monitoring with his primary care. PSAs are as follows: PSA: 12/25 4.0, 02/22 3.8, 07/25 3.1 In office urinalysis results reviewed with the patient today. PVR 0mL. He does experience he issues with urinary dribbling and nocturia. We did discussed potential causes of these lower urinary tract symptoms as well as further treatment options and risks and benefits of these treatment options. We discussed potential causes of elevated PSA. He denies incontinence, hematuria, dysuria, foul smelling urine, flank pain, fever, and or chills. We discussed lifestyle modifications to assist with lower urinary tract symptoms as well as importance of management and diabetes for improvement in lower urinary tract symptoms as well as overall health and well-being. All questions were answered. He otherwise offers no other issues or concerns at this time. [facility] Medical History Kidney stones Cellulitis of left leg Shingles Family History Maternal Grandmother High cholesterol Sister Substance abuse Social History Household Members: Spouse Both parents involved: No Caregiver staying overnight: No Housing: House Are you a primary personal care assistant to a significant other at home: No Do you presently have visiting nurse or other home services: No Alcohol intake: never Patient Tobacco Use Status: Never used Tobacco e-Cigarette/Vaping Use: Never Used Special janis needs: No service: Yes Current occupational status: employed Current occupation: Builder, self employed Cognitive needs: No Hearing needs: No Vision needs: No Review of Systems Const All systems reviewed & are unremarkable except as noted in HPI and below Physical Exam Const General: cooperative, healthy appearing, comfortable, no acute distress, well developed, alert and awake Orientation/consciousness: patient oriented x3 Limitations: no limitations HEENT Head: Yes normal to inspection, Yes normocephalic and Yes atraumatic Ears: hearing grossly normal bilaterally Eyes General: appearance normal, both eyes and all related structures Neck Neck: Yes normal visual inspection and Yes trachea midline Chest Chest palpation & inspection: normal inspection of the chest Resp Effort & Inspection: normal respiratory effort and able to speak in complete sentences Cardio Rate: regular rate GI Inspection: Yes normal to inspection General: Yes no CVA tenderness Back/Spine/Pelvis Back: no CVA tenderness Skin General skin exam: no rashes or lesions noted Neuro General: patient oriented x3 Extrem General: Yes normal to inspection Psych Appearance: grossly normal and well kempt Mental Status: mental status grossly normal Speech and movement: Normal speech and movement present and Clear speech present Affect: normal affect Attitude: cooperative Thought process: Normal thought process present Thought content: Normal thought content present Insight: Fair insight present (Psych) Judgement: Fair judgement present (Psych) Office Procedures Post Void Residual Post Residual Void Post Void Residual (PVR): 0 [id number] Void Residual by ultrasound Results AMB Urinalysis, Automated UA Leukoctes 0 Margarita/uL Last Edit by JENNIE Sierra on 07/17/25 16:39 UA Nitrite Negative Last Edit by Hernesto Coelho [facility] on 07/17/25 16:39 UA Urobilinogen 0.2 mg/dL Last Edit by Hernesto Coelho [facility] on 07/17/25 16:39 UA Protein 0 mg/dL Last Edit by Hernesto Coelho [facility] on 07/17/25 16:39 UA pH 5.5 Last Edit by Hernesto Coelho [facility] on 07/17/25 16:39 UA Blood 0 Hiro/uL Last Edit by Hernesto Coelho [facility] on 07/17/25 16:39 UA Specific [place] 1.030 Last Edit by Hernesto Coelho [facility] on 07/17/25 16:39 UA Ketone Negative Last Edit by Hernesto Coelho [facility] on 07/17/25 16:39 UA Bilirubin 0 mg/dL Last Edit by Hernesto Coelho [facility] on 07/17/25 16:39 UA Glucose 0 mg/dL Last Edit by Hernesto Coelho [facility] on 07/17/25 16:39 Results Reviewed Results Reviewed: Laboratory Last Values Urine pH (Auto) 5.5 07/17/25 16:38 Specific [place] (Auto) 1.030 07/17/25 16:38 Urine Protein (Auto) 0 mg/dL 07/17/25 16:38 Glucose (UA)(Auto) 0 mg/dL 07/17/25 16:38 Urine Ketones (Auto) Negative 07/17/25 16:38 Urine Blood (Auto) 0 Hiro/uL 07/17/25 16:38 Urine Nitrite (Auto) Negative 07/17/25 16:38 Urine Bilirubin (Auto) 0 mg/dL 07/17/25 16:38 Urine Urobilinogen (Auto) 0.2 mg/dL 07/17/25 16:38 Leukocyte Esterase (Auto) 0 Margarita/uL 07/17/25 16:38 Date of Service: 07/10/25 Procedure(s): US retroperitoneal comp FINDINGS: Right kidney: The right kidney measures 11.9 x 5.1 x 6.1 cm. Renal parenchymal echotexture and thickness are normal. There is a 1.8 x 1.8 x 1.6 cm upper pole cyst. There is no hydronephrosis or renal calculi. Left Kidney: The left kidney measures 12.9 x 6.6 x 5.6 cm. Renal parenchymal echotexture and thickness are normal. There is a 3.5 x 3.3 x 3.7 cm upper pole cyst. There is no hydronephrosis or renal calculi. The urinary bladder is unremarkable. Bilateral ureteral jets are identified. Before voiding, the urinary bladder measured 6.4 x 5.6 x 8.0 cm, for an estimated volume of 150 mL. After voiding, the urinary bladder measured 3.5 x 2.5 x 3.3 cm, for an estimated volume of 15 mL. The prostate measures 6.3 x 5.1 x 5.7 cm, for an estimated volume of 96 mL. IMPRESSION: 1. Bilateral renal cysts as described. Otherwise unremarkable retroperitoneal ultrasound. 2. Post void bladder residual of 15 mL. 3. Estimated prostate volume of 96 mL. Assessment & Plan Assessment & Plan (1) Elevated PSA: Code(s): R97.20 - Elevated prostate specific antigen [PSA] Category: Medical (2) Urinary retention: Code(s): R33.9 - Retention of urine, unspecified Category: Medical (3) Urinary hesitancy: Code(s): R39.11 - Hesitancy of micturition Category: Medical (4) Renal cyst: Code(s): N28.1 - Cyst of kidney, acquired Category: Medical (5) Enlarged prostate: Code(s): N40.0 - Benign prostatic hyperplasia without lower urinary tract symptoms Category: Medical Plan In office urinalysis results reviewed with the patient today; as noted above. PVR 0 mL. Recent retroperitoneal ultrasound results reviewed with the patient today; as noted above. Stop Flomax. Start terazosin as discussed and prescribed. We discussed initiation of finasteride given enlarged prostate noted on recent imaging. We discussed further treatment options of enlarged prostate and risks and benefits of these treatment options. He would like to undergo cystoscopy to assess for surgical intervention. Follow-up next available in office cystoscopy Follow-up per doctor's orders; or sooner with any issues, concerns, and or questions. Orders: Orders AMB Urinalysis Automated Today Z13.9 - Encounter for screening, unspecified Medications: New terazosin 5 mg PO BEDTIME 30 caps 3RF 30 days N40.1 - Benign prostatic hyperplasia with lower urinary tract symptoms, R35.0 - Frequency of micturition Patient Instructions: The patient had an opportunity to ask questions regarding the treatment plan. All questions were answered. Physical exam, labs, and imaging were discussed and reviewed in detail. As well as risks, benefits, and discussion of treatment choices. No major barriers to understanding were identified. The patient expressed understanding and agreement with the above treatment plan. The patient was made aware they should contact our office by phone for worsening of their current condition, the appearance of new symptoms, or with any questions or concerns. Compliance is encouraged with any medications and follow up testing that is ordered. It is a privilege to be allowed the opportunity to participate in? your urological care.? Again, if you have any questions or concerns If you have any questions or concerns please do not hesitate to contact me. The office is [phone]. This note is constructed using voice recognition software. While every effort has been made to ensure accuracy trimmer tailer errors may have been included. Yours sincerely, IZA Noriega Coding Level of Care Code Est Pt Level 4 (72294) Diagnoses Elevated PSA R97.20 Urinary retention R33.9 Urinary hesitancy R39.11 Renal cyst N28.1 Enlarged prostate N40.0 CPT Codes Post Residual Void - PVR CPT Code: 42183-Tdtt Void Residual by ultrasound ([id number])
--- OUTSIDE RECORDS SUMMARY | 2025-07-17 18:26 | XMS_ITS | Clinical Summary ---
Author Organization [facility] Address [address] [place] [id number] Phone Care Team Providers Care Film Developer Name Role Phone Pcp, Unknown Primary [...] topic Medical Devices Not on file Insurance [facility] Care Teams Film Developer Relationship Specialty Start Date End Date Pcp, Unknown PCP - General 01/30/24 Additional Source Comments The information contained in this document represents components of the legal health record. It is not the complete legal health record.[facility]
== END 2025-07-17 15:43 | disposition home or self-care (01) ==
LOC: HO.HUSH 14:51
PROVIDERS: PCP Family Medicine; Visit Provider Nurse Practitioner Family
DX: R97.20 Elevated prostate specific antigen [PSA] (principal); R33.9 Retention of urine, unspecified; R39.11 Hesitancy of micturition; N28.1 Cyst of kidney, acquired; N40.0 Benign prostatic hyperplasia without lower urinary tract symptoms; Z13.9 Encounter for screening, unspecified
CPT/HCPCS: 99214

== ENCOUNTER → 2025-07-17 14:51 | Outpatient (BNVA) | payer BC, SELFPAY | PROVIDERS: PCP Family Medicine; Visit Provider Nurse Practitioner Family | DX: R97.20 Elevated prostate specific antigen [PSA] (principal); N40.1 Benign prostatic hyperplasia with lower urinary tract symptoms; R33.9 Retention of urine, unspecified; R39.11 Hesitancy of micturition; N28.1 Cyst of kidney, acquired | CPT/HCPCS: 51798; 81003 ==

== ENCOUNTER 2025-08-01 13:21 | Outpatient (AMB) | payer BC, SELFPAY ==
--- NOTE | 2025-08-01 13:34 | A.OFFVIS_ITS ---
Vital Signs 08/01/25 13:34 Height 5 ft 10 in Intake Visit Reasons: Onychogryphosis Intake Note: Cortez is a 59 year old male who presents today as a new patient for his bilateral Onychogryphosis. Pt reports this has been going on for many years. He has not had any previous treatment for his toenails and he states he experiences pain when he has an ingrown. Patient reports he currently has an ingrown on his right hallux on the medial border. Allergies No Known Allergies Allergy (Verified 08/01/25 13:36) HPI HPI Onychogryphosis: Details: 59-year-old male past medical history of trigeminal neuralgia, right knee pain, diabetes mellitus type 2 controlled with diet, and varicose veins presents for initial evaluation of painful ingrown toenails bilaterally. He states that he has had ingrown toenails for over 20 years, and recently they have been worsening causing pain. He states that anytime there is contact with his toes, from blankets to his shoes, he has pain to his toes. He typically cuts the ingrown nail out and trims them himself, however he is looking for a permanent solution. He denies seeing any drainage, warmth, or signs of infection to his toes. He also notes a history of right 2nd toenail ingrown pain. Patient also complains of a sore/occasional sharp pain to his left heel, worse when flexing his ankle. He notes that he typically walks for a prolonged period of time which has helped him lose weight up to 100 lb. He does also no occasional numbness sensation to the bottom of his heel. Patient also complains of varicose veins in both of his feet and legs. Denies swelling at this time. Has not seen a vascular surgeon. [facility] Medical History Kidney stones Cellulitis of left leg Shingles Family History Maternal Grandmother High cholesterol Sister Substance abuse Social History Household Members: Spouse Both parents involved: No Caregiver staying overnight: No Housing: House Are you a primary career services manager to a significant other at home: No Do you presently have visiting nurse or other home services: No Alcohol intake: never Patient Tobacco Use Status: Never used Tobacco e-Cigarette/Vaping Use: Never Used Special janis needs: No service: Yes Current occupational status: employed Current occupation: Builder, self employed Cognitive needs: No Hearing needs: No Vision needs: No Review of Systems Const All systems reviewed & are unremarkable except as noted in HPI and below Physical Exam Extrem Other: *Bilateral Lower Extremity Focused Exam Vascular: DP/PT 2/4, CFT<3s to digits, TG warm to cool, mild edema to the medial and lateral border bilateral hallux, worst of the left hallux. Extensive varicose veins to the medial and dorsal foot bilaterally. Derm: No erythema, no purulent drainage to bilateral hallux. Neuro: Protective sensation grossly intact to bilateral lower extremities. MSK: Mild tenderness on palpation of the medial and lateral borders bilateral hallux, worse of the left foot. Mild tenderness on palpation of the plantar medial calcaneal tubercle left heel. Moderate arch bilaterally. Ankle dorsiflexion 5 degrees on knee extension, mild tight Achilles tendon palpable to the left heel posterior heel. Assessment & Plan Assessment & Plan (1) Paronychia of great toe of right foot: Code(s): L03.031 - Cellulitis of right toe Category: Medical Plan: * Discussed the etiology of his ingrown toenails. Explained that he does have ingrown nails which are not acutely infected at this time however have a high chance of becoming infected in the future based on clinical presentations. He does have pain from the ingrown nails. * He was recommended partial nail avulsion with matrixectomy for medial and lateral nail borders bilateral hallux. Recommended performing one side at a time, likely 1-2 weeks apart. * We will get preauthorization for the procedure prior to his next visit. * Follow up in 1 week. (2) Paronychia of great toe, left: Code(s): L03.032 - Cellulitis of left toe Category: Medical Plan: * Discussed the etiology of his ingrown toenails. Explained that he does have ingrown nails which are not acutely infected at this time however have a high chance of becoming infected in the future based on clinical presentations. He does have pain from the ingrown nails. * He was recommended partial nail avulsion with matrixectomy for medial and lateral nail borders bilateral hallux. Recommended performing one side at a time, likely 1-2 weeks apart. * We will get preauthorization for the procedure prior to his next visit. * Follow up in 1 week. (3) Plantar fasciitis of left foot: Code(s): M72.2 - Plantar fascial fibromatosis Category: Medical Plan: * Recommended range of motion and stretching exercises prior to walking/increased activity. * May require imaging work-up. (4) Diet-controlled diabetes mellitus: Code(s): E11.9 - Type 2 diabetes mellitus without complications Category: Medical Plan: Risk Stratification: No current ulceration, infection, or pre-ulcerative lesion. No loss of protective sensation or peripheral arterial disease. No plans for further testing/referrals for non-invasive vascular studies. Patient is at low risk for diabetic foot complications at this time. Recommendations: Continue routine foot care and daily self-inspection. Recommend moisturizing daily. Recommend supportive proper fitting shoe-wear. The patient may require diabetic shoes in the future. Reinforced diabetic foot education and risks from peripheral neuropathy. Coding Level of Care Code New Pt Level 3 (92554) Diagnoses Paronychia of great toe of right foot L03.031 Paronychia of great toe, left L03.032 Plantar fasciitis of left foot M72.2 Diet-controlled diabetes mellitus E11.9 Time Spent (min) 45
--- OUTSIDE RECORDS SUMMARY | 2025-08-01 14:51 | XMS_ITS | Clinical Summary ---
Author Organization [facility] Address [address] [place] [phone] Phone Care Team Providers Care Epoxy Specialist Name Role Phone Pcp, Unknown Primary Care [...] topic Medical Devices Not on file Insurance [facility] Care Teams Epoxy Specialist Relationship Specialty Start Date End Date Pcp, Unknown PCP - General 01/30/24 Additional Source Comments The information contained in this document represents components of the legal health record. It is not the complete legal health record.[facility]
== END 2025-08-01 14:07 | disposition home or self-care (01) ==
LOC: HO.HPODS 13:22
PROVIDERS: PCP Family Medicine; Visit Provider Student in an Organized Health Care Education/Training Program
DX: L03.031 Cellulitis of right toe (principal); L03.032 Cellulitis of left toe; M72.2 Plantar fascial fibromatosis; E11.9 Type 2 diabetes mellitus without complications
CPT/HCPCS: 99204

== ENCOUNTER 2025-08-08 14:02 | Outpatient (AMB) | payer BC, SELFPAY ==
[2025-08-08 14:15] VITALS: BP 112/70; PULSE 60; O2SAT 97; BMI 29.3
--- NOTE | 2025-08-08 14:15 | MHC.OFFVIS ---
Vital Signs 08/08/25 14:15 Height 5 ft 10 in Weight 204 lb 4 oz BMI 29.3 BP 112/70 Blood Pressure Location Lt brachial Position Sitting Pulse 60 Pulse Source Pulse Oximeter Pulse Oximetry (%) 97 Oxygen Delivery Method Room Air Intake Visit Reasons: INP - NARAYAN Intake Note: Patient presents archivist [employer] NARAYAN. Patient has worries about his health and has difficulty falling back asleep when he wakes up in the middle of the night. He says his mind continues to roll and cant fall back sleep. Goes to be at 1am and wakes up at 9:30am. Patient states light snoring. No headaches, no history of sleep studies. Accompanied by: Self / Same As Patient Allergies No Known Allergies Allergy (Verified 08/08/25 14:19) HPI Comments Details: 59 year old male presents for a new pt sleep apnea evaluation, he is referred to us by his pcp. December 2023 PMH of Postherpetic Nueralgia treated with Valcyclovir. Pt. has been sleeping in a recliner for months now due to multiple trips to the bathroom at night. He is sleep deprived due to nocturia. He snores lightly has morning headaches, and or afternoon headaches. He is taking Terazosin today and will f/u with the urologist in August. He goes to bed at 10pm and watches tv until he is tired, then puts ear plugs in and wears his eye mask. He runs the white noise machine and ruminates until about 1am then he finally will fall asleep in his recliner. His memory is poor he has trouble with focus and attention to details. He feels overwhelmed when he thinks about going another day without sleep. Since his episode of Trigeminal Neuralgia he was told to lose weight as his A1c was 9.5 and he has lost over 100lbs since then and his A1c went down to 5.2. His legs are edematous r>l and he has RLS symptoms lower ext left leg only with twitches and jumping at night however it does not keep him up at night. He has tried an otc sleep aid many years ago, however it made him feel more anxious the next morning. [facility] Medical History Kidney stones Cellulitis of left leg Shingles Family History Maternal Grandmother High cholesterol Sister Substance abuse Social History Household Members: Spouse Both parents involved: No Caregiver staying overnight: No Housing: House Are you a primary manager respiratory care to a significant other at home: No Do you presently have visiting nurse or other home services: No Alcohol intake: never Patient Tobacco Use Status: Never used Tobacco e-Cigarette/Vaping Use: Never Used Special janis needs: No service: Yes Current occupational status: employed Current occupation: Builder, self employed Cognitive needs: No Hearing needs: No Vision needs: No Physical Exam Vital Signs: Last Vital Signs Pulse 60 08/08/25 14:15 BP 112/70 08/08/25 14:15 Pulse Ox 97 08/08/25 14:15 Oxygen Delivery Method Room Air 08/08/25 14:15 BMI result Body Mass Index 29.3 Const General: cooperative and no acute distress Nutritional Appearance: average body habitus Orientation/consciousness: patient oriented x3 HEENT Face and sinus: Yes face symmetric Teeth and gingiva: other (M[place]ampti score is 3) Eyes Pupils: Equal, round and reactive pupils present Neck Neck: Yes full ROM Resp Effort & Inspection: normal respiratory effort and able to speak in complete sentences Neuro Other: oral tremor / tongue tremor General: patient oriented x3 and moves all extremities Cranial nerves: Yes Facial sensation intact/muscles of mastication intact, Yes Equal, round and reactive pupils present, Yes Normal facial strength present, Yes Midline tongue present, Yes Ability to bilaterally rotate head present and Yes Ability to bilaterally elevate shoulders present Gait exam (Neuro): Normal gait present and Antalgic gait present Motor exam (neuro): 5/5 motor strength present throughout Psych Appearance: grossly normal Attitude: cooperative Thought process: Normal thought process present Results Reviewed Results Reviewed: US/US retroperitoneal comp IMPRESSION: 1. Bilateral renal cysts as described. Otherwise unremarkable retroperitoneal ultrasound. 2. Post void bladder residual of 15 mL. 3. Estimated prostate volume of 96 mL. Assessment & Plan Assessment & Plan (1) Excessive daytime sleepiness: Code(s): G47.19 - Other hypersomnia Category: Medical (2) Anemia: Code(s): D64.9 - Anemia, unspecified Category: Medical Qualifiers: Anemia type: iron deficiency Iron deficiency anemia type: other iron deficiency Qualified Code(s): D50.8 - Other iron deficiency anemias (3) Insomnia: Code(s): G47.00 - Insomnia, unspecified Category: Medical Qualifiers: Insomnia type: primary Qualified Code(s): F51.01 - Primary insomnia (4) Nocturia more than twice per night: Code(s): R35.1 - Nocturia Category: Medical Plan HST to r/o narayan Insomnia Ambien 5mg daily at bedtime Labs to r/o deficiencies Nocturia f/u with Urology Will f/u in 3 months Orders: Orders Ferritin Today D64.9 - Anemia, unspecified, G47.19 - Other hypersomnia Methylmalonic Acid Today D64.9 - Anemia, unspecified, G47.19 - Other hypersomnia, G47.9 - Sleep disorder, unspecified, R53.83 - Other fatigue Homocysteine Today D64.9 - Anemia, unspecified, G47.19 - Other hypersomnia, G47.9 - Sleep disorder, unspecified, R53.83 - Other fatigue TSH reflex Free T4 Today D64.9 - Anemia, unspecified, G47.19 - Other hypersomnia RT home sleep study Today G47.19 - Other hypersomnia IRON PROFILE Today D64.9 - Anemia, unspecified, G47.19 - Other hypersomnia, G47.9 - Sleep disorder, unspecified, R53.83 - Other fatigue Vitamin D 25-OH Total Today D64.9 - Anemia, unspecified, G47.19 - Other hypersomnia Vitamin B12 and Folate Today D64.9 - Anemia, unspecified, G47.19 - Other hypersomnia Medications: New zolpidem (Ambien) May take one tablet by mouth at bedtime. 5 mg PO BEDTIME 60 tabs 2RF insomnia 2 months MDD 5mg G47.00 - Insomnia, unspecified, R35.1 - Nocturia Patient Instructions: Sleep Hygiene provided: set a scheduled bedtime and wake time to help regulate the circadian rhythm and balance the release of pituitary hormones. Sleep in a dark room, temperatures below 68 degrees, and no devices n bed. Limit caffeinated products 6 hours prior to bed, and limit fluids 2-4 hours prior to bed. Gentle night yoga, diffusing essential oils, and playing soft music can be relaxing. Coding Level of Care Code New Pt Level 4 (90591) Diagnoses Excessive daytime sleepiness G47.19 Other iron deficiency anemia D50.8 Anemia type: iron deficiency Iron deficiency anemia type: other iron deficiency Primary insomnia F51.01 Insomnia type: primary Nocturia more than twice per night R35.1 Sleep Questionnaire Difficulty falling asleep: Yes Difficulty staying asleep?: Yes Number of arousals: 5-6 Snoring: Yes Witnessed apneas: No Gasping arousals: No Nocturia: Yes GERD: No Vivid dreams: No Acting out dreams: No Abnormal behavior in sleep: No Abnormal movements in sleep: No Morning headaches: Yes Daytime naps: No Restless legs: Yes Hallucinations: No Sleep paralysis: Yes Drop attacks: No Sleep Study: No CPAP: No
== END 2025-08-08 15:14 | disposition home or self-care (01) ==
LOC: HO.HSMS 14:03
PROVIDERS: PCP Family Medicine; Visit Provider Physician Assistant Medical
DX: G47.19 Other hypersomnia (principal); D50.8 Other iron deficiency anemias; F51.01 Primary insomnia; R35.1 Nocturia
CPT/HCPCS: 99204

== ENCOUNTER 2025-09-13 13:02 | Outpatient (AMB) | payer BC, SELFPAY ==
--- NOTE | 2025-09-13 13:09 | MHC.OFFVIS ---
Intake Visit Reasons: Cysto Intake Note: Patient is present for Cystoscopy Urology Med: Terazosin Antibiotic Allergy: None Blood Thinner: Aspirin PSA 3.07 07/02/2025 Patient was under the impression that this follow up will dicuss procedure for his prostate. Patient states he urinates frequently during the night that impacts his life. Accompanied by: Self / Same As Patient Allergies No Known Allergies Allergy (Verified 09/13/25 13:10) HPI Comments Details: Humble is a pleasant male. He is a patient of Dr. Silva. He has the following urologic history - nephrolithiasis - lower urinary tract symptoms Initial presentation with urinary retention and elevated PSA Imaging displayed prostate 96 cc Postvoid value volume 15 Previously had been on Flomax 0.8 mg Family history prostate cancer PSA: 12/25 4.0, 02/22 3.8, 07/25 3.1 Initiate finasteride Discussed GreenLight laser [facility] Medical History Kidney stones Cellulitis of left leg Shingles Family History Maternal Grandmother High cholesterol Sister Substance abuse Social History Household Members: Spouse Both parents involved: No Caregiver staying overnight: No Housing: House Are you a primary director of career resources to a significant other at home: No Do you presently have visiting nurse or other home services: No Alcohol intake: never Patient Tobacco Use Status: Never used Tobacco e-Cigarette/Vaping Use: Never Used Special janis needs: No service: Yes Current occupational status: employed Current occupation: Builder, self employed Cognitive needs: No Hearing needs: No Vision needs: No Review of Systems Const Denies chills and Denies fever(s) Card Reports no additional complaints and Denies syncope Resp Denies cough GI Denies abdominal pain and Denies heartburn Reports as per HPI and Denies change in libido Neuro Denies syncope Psych Denies change in libido Endo Denies change in libido Physical Exam Const General: cooperative, healthy appearing, comfortable and no acute distress Orientation/consciousness: patient oriented x3 HEENT Face and sinus: Yes normal facial exam Mouth: moist mucous membranes Neck Neck: Yes normal visual inspection, Yes full ROM and Yes trachea midline Chest Chest palpation & inspection: normal inspection of the chest Resp Effort & Inspection: normal respiratory effort, able to speak in complete sentences and no respiratory distress GI Inspection: Yes normal to inspection Back/Spine/Pelvis Cervical Spine: normal cervical lordosis Thoracic/Lumbar Spine: thoracic and lumbar spine normal to inspection Skin General skin exam: no rashes or lesions noted Neuro General: patient oriented x3, gait normal, tone normal and moves all extremities Extrem General: Yes normal to inspection and Yes capillary refill normal Assessment & Plan Assessment & Plan (1) Elevated PSA: Code(s): R97.20 - Elevated prostate specific antigen [PSA] Category: Medical (2) Enlarged prostate: Code(s): N40.0 - Benign prostatic hyperplasia without lower urinary tract symptoms Category: Medical (3) Nocturia more than twice per night: Code(s): R35.1 - Nocturia Category: Medical Plan We discussed the nature of the decision and reasonable options for performing a prostate intervention. Interventions include TURP, GreenLight laser enucleation of the prostate, GreenLight laser ablation of the prostate, transurethral incision of the prostate, and I-Tend prostate procedure. Options such as medical therapy were discussed. The relative uncertainties and benefits related to each alternate procedure were adequately discussed. General surgical risks including, but not limited to, pain, bleeding, infection, myocardial infarction, pulmonary embolus, deep vein thrombosis and cerebrovascular accident which may result in further hospitalization were discussed. Full disclosure of the procedure as well as all major risks, benefits and complications were discussed including but not limited to damage to the urethra or bladder neck, recurrent BPH, retrograde ejaculation, bladder infection, urge, de radhames frequency, incomplete emptying, dysuria, remote chance of erectile dysfunction, epididymitis, and meatal stenosis. The success rate of the procedure was discussed. Success of the procedure in the short-term does not necessarily guarantee that long-term success will be maintained. Suitable follow up will need to be maintained. The patient showed understanding of discussion. An opportunity was provided for questions to be answered and wishes to proceed with the following procedure. - GreenLight laser prostate Medications: New dutasteride 0.5 mg PO DAILY 90 caps 1RF 90 days R35.1 - Nocturia Patient Instructions: This note is constructed using voice recognition software. While every effort has been made to ensure accuracy business administration program chair errors may have been included. Imaging studies, laboratory and physical exam results were discussed and reviewed in detail. No major barriers to patient understanding were identified. An opportunity to ask questions regarding the treatment plan was provided. All questions were answered. The patient expressed understanding and agreement with the above treatment plan. The patient is aware they should contact our office by phone for worsening of their current condition or the appearance of new urologic symptoms. Compliance is encouraged with any medications and followup testing that is ordered. It is a privilege to participate in the urologic care of your patient. If you have any questions or concerns regarding treatment for the above conditions, or other urologic issues, please do not hesitate to contact me. The office telephone contact is [phone]. Sincerely, Dr Jarett Martinez MD, [facility] - Urology Compassionate Specialist Care for the Genitourinary System Coding Level of Care Code Est Pt Level 4 (63964) Complex EM visit Add On G2211 Diagnoses Elevated PSA R97.20 Enlarged prostate N40.0 Nocturia more than twice per night R35.1
== END 2025-09-13 13:44 | disposition home or self-care (01) ==
LOC: HO.HUSH 13:03
PROVIDERS: PCP Family Medicine; Visit Provider Urology
DX: R97.20 Elevated prostate specific antigen [PSA] (principal); N40.0 Benign prostatic hyperplasia without lower urinary tract symptoms; R35.1 Nocturia
CPT/HCPCS: 99214

== ENCOUNTER 2025-09-19 13:30 | Outpatient (AMB) | payer BC, SELFPAY ==
--- NOTE | 2025-09-19 13:41 | A.OFFPC_ITS ---
Vital Signs 09/19/25 13:46 Height 5 ft 10 in Weight 208 lb 2 oz BMI 29.9 BP 110/64 Blood Pressure Location Rt brachial Position Sitting Respiration 16 Pulse 51 Pulse Source Pulse Oximeter Temp 98.2 F Temp Source Oral Pulse Oximetry (%) 99 Oxygen Delivery Method Room Air Intake Visit Reasons: f/u chronic conditions Intake Note: patient is scheduled to follow up for chronic conditions, patient would like to discuss enlarged prostate procedure urology is insisting on doing. Hydrogen Operator Required: No Allergies No Known Allergies Allergy (Verified 09/19/25 13:44) Medication List - Last Reconciled 09/19/25 by Ascencion Silva MD aspirin (Adult Low Dose Aspirin) 81 mg PO DAILY compr.stocking,knee,long,large 20-30 mmHg Daily As directed, 90 days dutasteride 0.5 mg PO DAILY 90 days lancets (Tiendeouch Delica Plus Lancet) To Test Blood Sugar 1-2 times a day, As directed. 90 days sertraline 50 mg PO DAILY 90 days terazosin 5 mg PO BEDTIME 30 days Tobacco use date assessed: 07/04/25 Dental Screening Dental Screen Date: 07/04/25 HPI f/u chronic conditions HPI Details 59 y/o male presents to f/u chronic [facility] itions. Had been following up with urology for enlarged prostate, elevated PSA, urinary frequency. They had discussed options for performing a prostate intervention. Was prescribed dutasteride. He is also on terazosin. Reports ongoing difficulty sleeping. Reports a tremor. HPI Comments History of Present Illness Details Documentation assistance for Ascencion Silva MD, was provided by Den Simmons,? Braid Cutter on 09/19/2025 at 1:58 PM TOPHER. I, Dr. Silva, have read, observed, and verified documentation. ? PFSH Medical History Kidney stones Cellulitis of left leg Shingles Family History Maternal Grandmother High cholesterol Sister Substance abuse Social History Household Members: Spouse Both parents involved: No Caregiver staying overnight: No Housing: House Are you a primary rn intensive care unit to a significant other at home: No Do you presently have visiting nurse or other home services: No Alcohol intake: never Patient Tobacco Use Status: Never used Tobacco e-Cigarette/Vaping Use: Never Used Special janis needs: No service: Yes Current occupational status: employed Current occupation: Builder, self employed Cognitive needs: No Hearing needs: No Vision needs: No Questionnaire Thrive Questionnaire Date Thrive assessed: 12/03/24 I am a: Patient What is your living situation today?: I have a steady place to live Within the past 12 months, did the food you bought not last and you didn't have the money to get more?: I choose not to answer this question Within the past 12 months, did you worry whether your food would run out before you got money to buy more?: I choose not to answer this question Do you have trouble paying for medicines?: I choose not to answer this question Do you have trouble getting transportation to medical appointments?: I choose not to answer this question Do you have trouble paying your heating and electricity bill?: I choose not to answer this question Do you have trouble taking care of your child, family member or friend?: I choose not to answer this question Do you have trouble with day-to-day activities such as bathing, preparing meals, shopping, managing finances, etc.?: I choose not to answer this question Are you currently unemployed and looking for a job?: I choose not to answer this question Are you interested in more education?: I choose not to answer this question Please select the resources that you would like help with: None Currently or been in a relationship where the following occur: No concerns reported THRIVE Score: 0 JOSHUA-7 AMB Questionnaire JOSHUA-7 Date JOSHUA - 7 assessed: 02/11/25 Source: Developed by Drs. Roger Dc, Anne Fink, Juan Ramires and colleagues, with an educational iliana from [employer]. Review of Systems Const Denies chills, Denies fatigue, Denies fever(s), Denies headache(s) and Denies weakness ENT Denies dizziness and Denies headache(s) Card Denies dyspnea Resp Denies cough, Denies dyspnea, Denies wheezing and Denies other (shortness of breath) Musc Denies numbness and Denies tingling Neuro Denies dizziness, Denies headache(s), Denies numbness, Denies tingling and Denies weakness Psych Denies anxiety and Denies depression Endo Denies fatigue Aller/Immun Denies wheezing Physical exam (Primary Care) Tobacco/Smoking Status: Tobacco use Status Tobacco use date assessed 07/04/25 09/19/25 13:41 Patient Tobacco Use Status Never used Tobacco 09/19/25 13:41 e-Cigarette/Vaping Use Never Used 09/19/25 13:41 Thrive Assessment: Date of Thrive Assessment Date Thrive assessed 12/03/24 09/19/25 13:41 Currently or been in a relationship where the following occur: No concerns reported Const General: well developed; No acute distress Nutritional Appearance: well nourished Orientation/consciousness: patient oriented x3 HENMT Head: Yes normocephalic and Yes atraumatic Eyes General: appearance normal, both eyes and all related structures Pupils: Equal, round and reactive pupils present EOM: EOMs intact bilaterally Resp Effort & Inspection: normal respiratory effort Auscultation: clear to auscultation bilaterally Cardio Rate: regular rate Rhythm: regular rhythm Heart sounds: S1 normal heart sound present, S2 normal heart sound present, no gallops, no murmurs and no rubs Neuro General: patient oriented x3 and gait normal Cranial nerves: Yes Equal, round and reactive pupils present Psych Affect: normal affect Coding Level of Care Code Est Pt Level 4 (51589) Diagnoses Enlarged prostate N40.0 Nocturia more than twice per night R35.1 Difficulty sleeping G47.9 Excessive daytime sleepiness G47.19 Anxiety F41.9 Tremor R25.1 Assessment & Plan Assessment & Plan (1) Enlarged prostate: Code(s): N40.0 - Benign prostatic hyperplasia without lower urinary tract symptoms Category: Medical (2) Nocturia more than twice per night: Code(s): R35.1 - Nocturia Category: Medical (3) Difficulty sleeping: Code(s): G47.9 - Sleep disorder, unspecified Category: Medical (4) Excessive daytime sleepiness: Code(s): G47.19 - Other hypersomnia Category: Medical (5) Anxiety: Code(s): F41.9 - Anxiety disorder, unspecified Category: Medical (6) Tremor: Code(s): R25.1 - Tremor, unspecified Category: Medical Plan Followed by urology for nocturia and BPH Continue dutasteride and terazosin Follow-up with Dr. Martinez Plan is for GreenLight laser procedure Difficulty with sleep Patient notes that he has daytime hypersomnolence and also wakes up frequently at night. Some of his waking is due to the above nocturia. He also notes that he has issues with anxiety and this is impacting his ability to fall back asleep also. Tried zolpidem which he did not like. Reviewed sertraline again and he will consider trying this. Can titrate from 1/2 tablet daily to 1 tablet daily Will follow-up in 1 month He has an appointment for follow-up with sleep medicine and I recommended he do so. He is currently under evaluation for sleep apnea. Patient notes mild tremor when he is over tired. Will re-evaluate further when he has above issues better treated or if worsening. Medications: Refilled sertraline 50 mg PO DAILY 90 tabs 3RF 90 days
[2025-09-19 13:46] VITALS: BP 110/64; PULSE 51; RESP 16; TEMP 36.8; O2SAT 99; BMI 29.9
== END 2025-09-19 14:27 | disposition home or self-care (01) ==
LOC: HO.HMCFM 13:31
PROVIDERS: PCP Family Medicine; Visit Provider Family Medicine
DX: N40.0 Benign prostatic hyperplasia without lower urinary tract symptoms (principal); R35.1 Nocturia; G47.9 Sleep disorder, unspecified; G47.19 Other hypersomnia; F41.9 Anxiety disorder, unspecified; R25.1 Tremor, unspecified

== ENCOUNTER 2025-09-19 13:30 | Outpatient (REF) | payer BC, SELFPAY ==
[2025-09-19 16:33] LABS: Iron 110 mcg/dL (45-160); Percent Iron Saturation 46 % (15-50); Total Iron Binding Capacity 241 mcg/dL (228-428); Unsaturated Iron Binding 131 ug/dL
[2025-09-19 16:49] LABS: Ferritin 280 ng/mL (20-250)
[2025-09-19 17:01] LABS: Folate 17.6 ng/mL (> or = 4.0); Vitamin B12 603 pg/mL (200-900)
--- OUTSIDE RECORDS SUMMARY | 2025-09-19 20:43 | XMS_ITS | Clinical Summary ---
Author Organization [facility] Address [address] [place] [phone] Phone Care Team Providers Care Lens Maker Name Role Phone Pcp, Unknown Primary Care [...] ears) (1 of 1 - PCV) 2013 RSV VACCINE (1 - Risk 50-74 years 1-dose series) 2013 ZOSTER VACCINES (1 of 2) 2013 INFLUENZA VACCINE (#1) 2025 COVID-19 VACCINE (1 - 2024-2 6 season) 2025 HEPATITIS A VACCINES Aged Out No long er eligible based on patient's age to complete this topic HIB VACCINES Aged Out No longer eligi ble based on patient's age to complete this topic IPV VACCINES Aged Out No longer eligi ble based on patient's age to complete this topic MENINGOCOCCAL VACCINES (ACWY) Aged Out No longer eligible based on patient's age to complete this topic MENINGOCOCCAL VACCINES (B) Aged Out N o longer eligible based on patient's age to complete this topic Medical Devices Not on file Insurance [facility] [place] [id number] [facility] Care Teams Lens Maker Relationship Specialty Start Date End Date Pcp, Unknown PCP - General 01/30/24 Additional Source Comments The information contained in this document represents components of the legal health record. It is not the complete legal health record.[facility]
== END 2025-09-19 13:31 | disposition home or self-care (01) ==
LOC: HO.LAB 13:30
PROVIDERS: PCP Family Medicine; Visit Provider Physician Assistant Medical
DX: N40.0 Benign prostatic hyperplasia without lower urinary tract symptoms (principal); R53.83 Other fatigue; G47.9 Sleep disorder, unspecified; D64.9 Anemia, unspecified; G47.19 Other hypersomnia; R35.1 Nocturia; F41.9 Anxiety disorder, unspecified; R25.1 Tremor, unspecified
CPT/HCPCS: 36415; 82306; 82607; 82728; 82746; 83090; 83540; 83921; 84443

== ENCOUNTER → 2025-10-17 14:01 | Outpatient (REF) | payer BC, SELFPAY ==
--- OUTSIDE RECORDS SUMMARY | 2025-10-17 18:16 | XMS_ITS | Clinical Summary ---
Author Organization [facility] Address [address] [place] [phone] Phone Care Team Providers Care Vp Marketing Services And Skin Name Role Phone Pcp, Unknown Primary Care [...] topic Medical Devices Not on file Insurance [facility] Care Teams Vp [employer] Relationship Specialty Start Date End Date Pcp, Unknown PCP - General 01/30/24 Additional Source Comments The information contained in this document represents components of the legal health record. It is not the complete legal health record.[facility]
== END ==
LOC: HO.SL 14:01
PROVIDERS: PCP Family Medicine; Visit Provider Physician Assistant Medical
DX: G47.19 Other hypersomnia (principal)
CPT/HCPCS: 95806

== ENCOUNTER → 2025-10-18 14:29 | Outpatient (BNV) | payer BC, SELFPAY | PROVIDERS: PCP Family Medicine; Visit Provider Psychiatry & Neurology Neurology | DX: G47.33 Obstructive sleep apnea (adult) (pediatric) (principal); G47.19 Other hypersomnia | CPT/HCPCS: 95806 ==